=== PATIENT | female | born 1980 | race Caucasian/White ===

== ENCOUNTER → 2021-01-24 12:33 | Outpatient (CLI) | payer OTHER, SELFPAY ==
--- NOTE | ~2021-01-24 | MM_ITS ---
EXAMINATION: MM screening americo BI w alice HISTORY: Screening TECHNIQUE: Craniocaudal and mediolateral oblique 3-D tomosynthesis images were obtained and synthetic 2-D images were generated. CAD analysis was submitted and interpreted. COMPARISON: No prior mammogram is available for comparison at this institution. BREAST PARENCHYMAL COMPOSITION: Breast composed of scattered areas of fibroglandular density. FINDINGS: There is a new mass in the upper central aspect of the left breast with irregular margins. The right breast is stable without evidence for malignancy. IMPRESSION: 1. New left breast mass, upper central aspect. 2. Additional mammographic views and possible breast ultrasound are recommended. BI-RADS Category 0: Incomplete: Needs additional imaging evaluation. Reviewed, dictated and finalized at location A. IMPRESSION: 1. New left breast mass, upper central aspect. 2. Additional mammographic views and possible breast ultrasound are recommended . BI-RADS Category 0: Incomplete: Needs additional imaging evaluation.
== END ==
PROVIDERS: Visit Provider Obstetrics & Gynecology
DX: Z12.31 Encounter for screening mammogram for malignant neoplasm of breast (principal); R92.8 Other abnormal and inconclusive findings on diagnostic imaging of breast
CPT/HCPCS: 77063; 77067

== ENCOUNTER → 2021-02-28 08:22 | Outpatient (CLI) | payer OTHER, SELFPAY ==
--- NOTE | ~2021-02-28 | MMUS_ITS ---
EXAMINATION: MM diagnostic americo LT w alice, US breast LT limited HISTORY: New upper central left breast mass reported on 01/24/2021 screening mammogram examination TECHNIQUE: Additional 3-D tomosynthesis images of the left breast were performed and synthetic 2-D im ages were generated. CAD analysis was submitted and interpreted. High resolution targeted left breast ultrasound was performed. COMPARISON: 01/24/2021 and 06/12/2011 bilateral digital screening mammogram examinations FINDINGS: MAMMOGRAPHIC FINDINGS: Approximately 5 x 9 mm spiculated mass is noted at mid to posterior depth in the upper central left b reast, highly suspicious for malignancy. ULTRASOUND: At 11-12:00 8 cm from the nipple there is an antiparallel up to 6 x 5.3 mm irregular shadowing mass, highly suggestive of malignancy. Ultrasound-guided biopsy is recommended. IMPRESSION: 1. Irregular antiparallel shadowing up to 6 mm mass at 11-12:00 8 cm from nipple 2. Ultrasound-guided biopsy is recommended BI-RADS category 5, highly suggestive of malignancy. Dr. Jack telephoned the report and ultrasound-guided biopsy recommendation on 02/28/[address] Garcia Courseware Developer Sarah. Reviewed, dictated and finalized at location A. IMPRESSION: 1. Irregular antiparallel shadowing up to 6 mm mass at 11-12:00 8 cm from nippl e 2. Ultrasound-guided biopsy is recommended BI-RADS category 5, highly suggestive of malignancy. Dr. Jack telephoned the report and ultrasound-guided biopsy recommendation on at [address] Radha Lim.
== END ==
PROVIDERS: Visit Provider Obstetrics & Gynecology
DX: R92.8 Other abnormal and inconclusive findings on diagnostic imaging of breast (principal); N63.20 Unspecified lump in the left breast, unspecified quadrant
CPT/HCPCS: 76642; 77061; 77065; G0279

== ENCOUNTER 2022-06-10 13:22 | Emergency (ER) | payer OTHER, SELFPAY ==
[2022-06-10 13:32] VITALS: BP 125/87; PULSE 97; RESP 16; TEMP 37.1; O2SAT 99
--- NOTE | 2022-06-10 14:05 | ED.URI ---
HPI - URI/Sore Throat General Chief Complaint: Upper Respiratory Infection Stated Complaint: uri Time Seen by Provider: 06/10/22 14:05 Source: patient, RN notes reviewed and old records reviewed Mode of arrival: ambulatory Limitations: no limitations History of Present Illness HPI Narrative: 42-year-old female with a history of breast cancer presents to the [facility] with sinus congestion, low-grade fevers. Took Mucinex this morning. Symptoms for at least 3 or 4 days. Related Data Home Medications Medication Instructions Recorded Confirmed gabapentin 300 mg capsule 300 mg PO DAILY 06/10/22 06/10/22 tamoxifen 20 mg tablet 20 mg PO DAILY 06/10/22 06/10/22 Allergies Allergy/AdvReac Type Severity Reaction Status Date / Time No Known Allergies Allergy Verified 06/10/22 14:13 Review of Systems Review of Systems: All systems reviewed & are unremarkable except as noted in HPI and below Constitutional: Constitutional: Reports no additional constitutional complaints Eyes: Eyes: Reports no additional eye complaints ENT: Reports as per HPI, Reports nasal congestion and Reports sore throat Cardiovascular: Cardiovascular: Reports no additional cardiovascular complaints, Denies chest pain and Denies dyspnea Respiratory: Respiratory: Reports as per HPI, Reports no additional respiratory complaints, Denies chest congestion, Reports cough and Denies dyspnea Gastrointestinal: Gastrointestinal: Reports no additional gastrointestinal complaints, Denies abdominal pain, Denies nausea and Denies vomiting Musculoskeletal: Musculoskeletal: Reports no additional musculoskeletal complaints Integumentary/Breasts: Skin/Breast: Reports system reviewed and no additional complaints, except as docu Neurologic: Reports system reviewed and no additional complaints, except as documented Psychiatric: Psychiatric: Reports no additional psychiatric complaints Allergic/Immunologic: Allergic/Immunologic: Reports no additional allergic/immunologic complaints PMFSH Past Medical History Medical History (Updated 06/10/22 @ 20:37 by Renay Junior, RICHELLE) Breast cancer Comments At the time of my signature, I reviewed and agree with the nursing past medical, surgical, social, and family history. There is no relevant family history pertinent to the patient complaint. Exam Const: General: cooperative, healthy appearing, comfortable, no acute distress, well developed, alert and well nourished Nutritional Appearance: well nourished Orientation/consciousness: patient oriented x3 Limitations: no limitations HENMT: Head: normal to inspection Ears: hearing grossly normal bilaterally and external ears normal Face/Nose/Sinus: Normal external nose present, Normal nares present, Normal nasal mucous membranes and turbinates present and normal facial exam Face and sinus: normal facial exam Mouth: Yes Normal oral and palatal mucosa present, Yes lip normal and Yes moist mucous membranes Throat: posterior oropharynx normal and uvula midline Eyes: General: appearance normal, both eyes and all related structures Alignment and Position: alignment normal Periorbital: periorbital findings normal Conjunctivae: conjunctivae normal Pupils: Equal, round and reactive pupils present EOM: EOMs intact bilaterally Neck: Neck: normal visual inspection, full ROM, no lymphadenopathy and no meningeal signs Chest: Chest palpation & inspection: normal inspection of the chest Resp: Effort & Inspection: normal respiratory effort and able to speak in complete sentences Auscultation: clear to auscultation bilaterally, no crackles, no rales, no rhonchi and no wheezes Cardio: Rate: regular rate Rhythm: regular rhythm Back/Spine/Pelvis: Cervical Spine: cervical ROM normal Thoracic/Lumbar Spine: No thoracic spinal tenderness Skin: General skin exam: normal color and no rashes or lesions noted Lesions: no lesions Rashes: no rashes Wounds: no wounds Neuro: General: patien
== END 2022-06-10 14:45 | disposition home or self-care (01) ==
PROVIDERS: Emergency Provider Nurse Practitioner
DX: J06.9 Acute upper respiratory infection, unspecified (principal); J32.9 Chronic sinusitis, unspecified; Z20.822 Contact with and (suspected) exposure to COVID-19; Z85.3 Personal history of malignant neoplasm of breast
CPT/HCPCS: 87426; 87804; 99213; C9803; G0463

== ENCOUNTER 2022-09-19 14:43 | Emergency (ER) | payer OTHER, SELFPAY ==
[2022-09-19 14:52] VITALS: BP 125/86; PULSE 78; RESP 16; TEMP 36.8; O2SAT 99
--- NOTE | 2022-09-19 14:52 | ED.URI ---
HPI - URI/Sore Throat General Chief Complaint: Upper Respiratory Infection Stated Complaint: Sinus Time Seen by Provider: 09/19/22 14:52 Source: patient Mode of arrival: ambulatory Limitations: no limitations History of Present Illness HPI Narrative: 42-year-old male presents with complaint of postnasal drainage, nasal congestion, sore throat, headache, chills and body aches for 3 days. Denies cough. Denies nausea vomiting diarrhea. Is concerned for strep throat. 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 All systems reviewed and negative except as noted above. Related Data Home Medications Medication Instructions Recorded Confirmed tamoxifen 20 mg tablet 20 mg PO DAILY 06/10/22 09/04/22 cholecalciferol (vitamin D3) 09/19/22 Allergies Allergy/AdvReac Type Severity Reaction Status Date / Time No Known Allergies Allergy Verified 09/19/22 14:46 Review of Systems Review of Systems: CONSTITUTIONAL: Denies fever. Drink chills, or sweats. EYES: Denies visual changes, redness, or discharge. ENT: Reports rhinorrhea, congestion, sore throat. Denies otalgia. CARDIOVASCULAR: Denies chest pain, palpitations, or edema. RESPIRATORY: Denies cough or dyspnea. GASTROINTESTINAL: Denies abdominal pain, nausea, vomiting, or diarrhea. GENITOURINARY: Denies dysuria or hematuria. SKIN: Denies rash or itching. MUSCULOSKELETAL: Denies back pain, joint pain, or myalgia. NEUROLOGIC: reports headache. Denies numbness, or weakness. PSYCHIATRIC: Denies anxiety or depression. All other systems reviewed are negative, except as documented in HPI. [facility] Past Medical History Medical History (Updated 09/19/22 @ 15:17 by Malia Kerns NP) Breast cancer Surgical History Surgical History (Updated 09/04/22 @ 16:22 by ARVIND Sifuentes) H/O tubal ligation 2015 History of bilateral mastectomy (05/12/21) invasive ductal carcinoma / breast implants S/P endometrial ablation 2016 Social History Social History (Updated 09/04/22 @ 16:20 by ARVIND Sifuentes) Smoking status: Never smoker Alcohol intake: current Substance use: never Substance use type: does not use Living arrangements: with family Additional living arrangements comments: family Occupation/Education: 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 Gender identity (if verbalized by the patient): Female Sexual Orientation (if Verbalized by the Patient): Straight or Heterosexual Comments At time of signature, agree with nursing past medical, surgical, social and family history. There is no relevant family history pertinent to the presenting complaint. Exam Narrative: GENERAL: This is a well-nourished, well-developed patient, in no apparent distress. HEAD: normocephalic, atraumatic. EYES: PERRL. Sclera clear/white. Vision is grossly intact. EARS: External ears normal, auditory canals clear and without drainage, TMs normal without perforation. Hearing grossly intact. NOSE: External nose normal with no obvious nasal discharge, nares without redness, no rhinorrhea. THROAT: Mucous membranes moist, posterior pharynx clear. NECK: Neck supple, non-tender without lymphadenopathy, masses or thyromegaly. CARDIOVASCULAR: Regular rate and rhythm without murmurs, gallops, or rubs. RESPIRATORY: Clear to auscultation. Breath sounds equal bilaterally. No wheezes, rales, or rhonchi. SKIN: warm, Dry, intact with no suspicious lesions or rash, good texture and turgor. NEURO: awake, alert, and oriented to person, place and time. There were no obvious focal neurologic abnormalities. EXTREMITIES: No joint tenderness, effusion, or edema noted. Course Course Level of Care: Express Care Visit Vital Signs Vital signs: Vital Signs Temperature 36.8 C 09/19/22 14:52 Pulse Rate 78 09/19/22 14:52 Respiratory Rate 16 09/19/22 14:52 Blood Pressure 125/86 09/19/22 14:52 Pulse Oximetry 99 09/19/22 14:52 Oxygen Delivery
== END 2022-09-19 15:18 | disposition home or self-care (01) ==
PROVIDERS: Emergency Provider Nurse Practitioner Family
DX: J10.1 Influenza due to other identified influenza virus with other respiratory manifestations (principal); Z20.822 Contact with and (suspected) exposure to COVID-19; Z85.3 Personal history of malignant neoplasm of breast; Z90.13 Acquired absence of bilateral breasts and nipples
CPT/HCPCS: 87081; 87426; 87804; 87880; 99213; C9803; G0463

== ENCOUNTER 2023-03-13 09:39 | Emergency (ER) | payer OTHER, SELFPAY ==
[2023-03-13 10:05] VITALS: BP 110/77; PULSE 77; RESP 16; TEMP 36.9; O2SAT 100
--- NOTE | 2023-03-13 10:36 | ED.URI ---
HPI - URI/Sore Throat General Chief Complaint: Upper Respiratory Infection Stated Complaint: Sinus Source: patient and RN notes reviewed Mode of arrival: ambulatory Limitations: no limitations History of Present Illness HPI Narrative: 43-year-old female presents for complaint of sinus pressure congestion over the past 5 days. Endorses nonproductive cough for over week. Denies shortness of breath, vomiting, fevers or chills. Taking DayQuil and ibuprofen for symptoms. MD elicited complaint: cough Related Data Home Medications Medication Instructions Recorded Confirmed tamoxifen 20 mg tablet 20 mg PO DAILY 06/10/22 03/13/23 gabapentin 300 mg capsule 300 mg PO DIRECTED 03/13/23 03/13/23 Allergies Allergy/AdvReac Type Severity Reaction Status Date / Time No Known Allergies Allergy Verified 03/13/23 10:04 Review of Systems Review of Systems: CONSTITUTIONAL: Denies malaise, chills, sweats, fever EYES: Denies visual changes, redness, or discharge ENT: Reports rhinorrhea, congestion, sinus pain, denies otalgia, sore throat CARDIOVASCULAR: Denies chest pain, palpitations, edema RESPIRATORY: Reports cough, post nasal drainage. Denies dyspnea GASTROINTESTINAL: Denies abdominal pain, nausea, vomiting, diarrhea SKIN: Denies rash or itching MUSCULOSKELETAL: denies myalgia NEUROLOGIC: Reports headache PMFSH Past Medical History Medical History Breast cancer Surgical History Surgical History H/O tubal ligation 2014 History of bilateral mastectomy (05/12/21) invasive ductal carcinoma / breast implants S/P endometrial ablation 2016 Social History Social History Smoking status: Never smoker Alcohol intake: current Substance use: never Substance use type: does not use Living arrangements: with family Additional living arrangements comments: family Occupation/Education: 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 Gender identity (if verbalized by the patient): Female Sexual Orientation (if Verbalized by the Patient): Straight or Heterosexual Exam Narrative: GENERAL: mildly Ill-appearing, nontoxic no acute distress. HEAD: Normocephalic EYES: PERRLA, conjunctivae clear ENT: Mucous membranes moist. Left TM pearly solitario with dull light reflex, right TM pearly solitario with clear effusion; no tragal tenderness. Oropharynx erythematous without lesions or exudate, no drooling, no hoarseness, no trismus, uvula midline. No tripod positioning, muffled voice, soft palate or pharyngeal wall bulging NECK: Supple. No lymphadenopathy CHEST: Clear to auscultation, breath sounds equal. No wheezing, rhonchi, rales, or stridor. No respiratory distress, speaks in full sentences. HEART: Regular rate and rhythm. No murmur heard. SKIN: Warm, dry, no rash. NEURO: Alert and oriented x3. PSYCH: Normal mood and affect Course Course Emergency Course: Patient is aware of diagnosis, understands and agrees to treatment plan. Anticipatory guidance given. Patient agrees to follow-up as directed and is aware of reasons to seek care at the emergency department. Portions of this record may have been created with voice recognition software Level of Care: Express Care Visit Vital Signs Vital signs: Vital Signs Temperature 98.5 F 03/13/23 10:05 Pulse Rate 77 03/13/23 10:05 Respiratory Rate 16 03/13/23 10:05 Blood Pressure 110/77 03/13/23 10:05 Pulse Oximetry 100 03/13/23 10:05 Oxygen Delivery Room Air 03/13/23 10:05 Temperature 98.5 F 03/13/23 10:05 Pulse Rate 77 03/13/23 10:05 Respiratory Rate 16 03/13/23 10:05 Blood Pressure 110/77 03/13/23 10:05 Pulse Oximetry 100 03/13/23 10:05 Oxygen Delivery Room Air 03/13/23 10:05 reviewed MDM - URI/Sore Throat MDM Narrative
== END 2023-03-13 10:45 | disposition home or self-care (01) ==
PROVIDERS: Emergency Provider Nurse Practitioner Family
DX: J06.9 Acute upper respiratory infection, unspecified (principal); Z85.3 Personal history of malignant neoplasm of breast; Z90.13 Acquired absence of bilateral breasts and nipples
CPT/HCPCS: 99213; G0463

== ENCOUNTER 2024-06-10 11:48 | Emergency (ER) | payer OTHER, SELFPAY ==
[2024-06-10 12:06] VITALS: BP 140/86; PULSE 84; RESP 16; TEMP 36.6; O2SAT 99
[2024-06-10 12:34] LABS: EDSTREPNEGPOS1 Negative (Negative)
--- NOTE | 2024-06-10 12:59 | ED_ITS ---
HPI - URI/Sore Throat General Chief Complaint: Upper Respiratory Infection Stated Complaint: sore throat, congestion Time Seen by Provider: 06/10/24 12:15 Source: patient Mode of arrival: ambulatory Limitations: no limitations History of Present Illness HPI Narrative: 44-year-old female presents with complaint of sore throat for the past 2-3 days. Reports that she has had nasal congestion, sinus pressure and congestion for the past 2-3 weeks. Feeling worse with body aches and chills. 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 Concerned she may have strep throat. Afebrile. All systems reviewed and negative except as noted above. Related Data Home Medications ?Medication ?Instructions ?Recorded ?Confirmed ?Last Taken ?Type tamoxifen 20 mg tablet 20 mg PO DAILY 06/10/22 09/10/23 Unknown History gabapentin 300 mg capsule 300 mg PO DIRECTED 03/13/23 09/10/23 Unknown History cholecalciferol (vitamin D3) 50 50 mcg PO DAILY 09/10/23 09/10/23 Unknown History mcg (2,000 unit) capsule Allergies Allergy/AdvReac Type Severity Reaction Status Date / Time No Known Allergies Allergy Verified 06/10/24 12:11 Review of Systems Review of Systems: CONSTITUTIONAL: Denies fever, chills, or sweats. reports fatigue. EYES: Denies visual changes, redness, or discharge. ENT: Reports rhinorrhea, congestion, sore throat, sinus pressure. Denies otalgia. CARDIOVASCULAR: Denies chest pain, palpitations, or edema. RESPIRATORY: Denies cough or dyspnea. GASTROINTESTINAL: Denies abdominal pain, nausea, vomiting, or diarrhea. GENITOURINARY: Denies dysuria or hematuria. SKIN: Denies rash or itching. MUSCULOSKELETAL: Denies back pain, joint pain, or myalgia. NEUROLOGIC: Denies headache, numbness, or weakness. PSYCHIATRIC: Denies anxiety or depression. All other systems reviewed are negative, except as documented in HPI. [facility] Past Medical History Medical History Breast cancer Surgical History Surgical History H/O tubal ligation 2014 History of bilateral mastectomy (05/12/21) invasive ductal carcinoma / breast implants S/P endometrial ablation 2016 Social History Social History (Updated 09/10/23 @ 16:30 by Carina Yoon, [facility]) Smoking status: Never smoker Second hand tobacco smoke exposure: No Alcohol intake: current Drinks per week: 4 Substance use: never Substance use type: does not use Do You Feel Safe in your Home?: Yes Lack of Transportation: No Lack of Food: Never True Current Housing: I Have Housing Concerned About Future Housing: No Difficulty Paying Gas/Electric Bills: No Difficulty Paying for Meds: No Currently Unemployed: No Education: Master's Degree or Higher Difficulty w/ Childcare or Family Care: No Living arrangements: with family Additional living arrangements comments: Occupation/Education: 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 Gender identity (if verbalized by the patient): Female Sexual Orientation (if Verbalized by the Patient): Straight or Heterosexual Comments At time of signature, agree with nursing past medical, surgical, social and family history. There is no relevant family history pertinent to the presenting complaint. Exam Narrative: GENERAL: This is a well-nourished, well-developed patient, in no apparent distress. HEAD: normocephalic, atraumatic. EYES: PERRL. Sclera clear/white. Vision is grossly intact. EARS: External ears normal, auditory canals clear and without drainage, TMs normal without perforation. Hearing grossly intact. NOSE: External nose normal with Mild congestion, purulent nasal drainage, erythema and swelling to bilateral nares. Maxillary sinus tenderness on palpation. THROAT: Mucous membranes moist, Erythema postnasal drainage NECK: Neck supple, non-tender without lymphadenopathy, masses or thyromegaly. CARDIOVASCULAR: Regular rate and rhythm without murmurs, gallops, or rubs. RESPIRATORY: Clear to auscultation. Breath sounds equal bilaterally. No wheezes, rales, or rhonchi. SKIN: warm, Dry, intact with no suspicious lesions or rash, good texture and turgor. NEURO: awake, alert, and oriented to person, place and time. There were no obvious focal neurologic abnormalities. EXTREMITIES: No joint tenderness, effusion, or edema noted. Course Course Level of Care: Express Care Visit Vital Signs Vital signs: Vital Signs Temperature 36.6 C 06/10/24 12:06 Pulse Rate 84 06/10/24 12:06 Respiratory Rate 16 06/10/24 12:06 Blood Pressure 140/86 06/10/24 12:06 Pulse Oximetry 99 06/10/24 12:06 Oxygen Delivery Room Air 06/10/24 12:06 Temperature 36.6 C 06/10/24 12:06 Pulse Rate 84 06/10/24 12:06 Respiratory Rate 16 06/10/24 12:06 Blood Pressure 140/86 06/10/24 12:06 Pulse Oximetry 99 06/10/24 12:06 Oxygen Delivery Room Air 06/10/24 12:06 reviewed MDM - URI/Sore Throat MDM Narrative Medical decision making narrative: strep test negative. Strep culture ordered. Will treat patient with antibiotic for bacterial sinusitis due to duration of symptoms and exam findings. Patient agrees with plan of care. Patient is aware of diagnosis, understands and agrees to treatment plan. Anticipatory guidance given. Patient agrees to follow-up as directed and is aware of reasons to seek care at the emergency department. Portions of this record may have been created with voice recognition software Differential Diagnosis Differential diagnosis: Likely upper respiratory infection, sinusitis and viral infection Lab Data Labs: Lab Results 06/10/24 Range/Units 12:18 POC Grp A Strep Screen Negative (Negative) Discharge Plan Discharge Clinical Impression: Acute bacterial sinusitis Patient Disposition: Home, Self-Care Condition: Stable Instructions: Antibiotic Form, Sinusitis (ED) Additional Instructions: take medications as prescribed. Taking [id number] antihistamine daily such as Claritin or Zyrtec. Take Tylenol or ibuprofen every 6-8 hours as needed for pain and fever. Drink at least 64 oz of water a day. Follow-up primary care physician if symptoms are not improving. Patient Language: [place] Prescriptions: New amoxicillin 875 mg tablet 875 mg PO Q12H 7 Days Qty: 14 0RF fluticasone propionate [Children's Flonase Allergy Rlf] 50 mcg/actuation spray,suspension 1 spray intranasal BID Qty: 16 0RF Rx Instructions: administer into each nostril No Action gabapentin 300 mg capsule 300 mg PO DIRECTED tamoxifen 20 mg tablet 20 mg PO DAILY cholecalciferol (vitamin D3) 50 mcg (2,000 unit) capsule 50 mcg PO DAILY Follow-up/Referrals: PHYSICIAN,SPORTS MARKETER [Primary Care Provider] - Stand Alone Forms: Work/School Release IP Time of Disposition: 12:32
== END 2024-06-10 12:39 | disposition home or self-care (01) ==
PROVIDERS: Emergency Provider Nurse Practitioner Family
DX: J01.90 Acute sinusitis, unspecified (principal); Z85.3 Personal history of malignant neoplasm of breast; Z90.13 Acquired absence of bilateral breasts and nipples
CPT/HCPCS: 87081; 87880; 99213; G0463

== ENCOUNTER 2024-12-23 19:37 | Emergency (ER) | payer OTHER, SELFPAY ==
[2024-12-23 19:38] VITALS: BP 129/93; PULSE 108; RESP 20; TEMP 36.7; O2SAT 100
--- OUTSIDE RECORDS SUMMARY | 2024-12-23 19:38 | XMS_ITS | Clinical Summary ---
Author Organization [facility] Address [address] [place] [address] Phone Care Team Providers Care Library Media Specialist Name Role Phone Unavailable Primary Care Provider Unavailabl e Allergies No known active allergies Medications No known medications Active Problems Problem Noted Date Diagnosed Date Csx 12/03, b-smyth, EBL 1200, H/H 0800 12/02/2011 GBS (group B Streptococcus c arrier), +RV culture, currently 11/05/2011 Choroid plexus cysts, , affecting care of mother, antepartum 07/12/2011 Resolved Problems Problem Noted Date Diagnosed Date Resolved Date R/O rupture 11/25/2011 12/04/2011 Immunizations Immunization Administration Dates Next Due (ADACEL/BOOSTRIX)(10 YR UP) TDAP VACCINE, 0.5ML, IM 12/08/2011 Family History Medical History Relation Name Comments Healthy Father Cancer Maternal Grandmother breast ca Healthy Mother High Cholesterol Paternal Grandmother Ovarian Cancer Neg Hx Relation Name Status Comments Brother Alive Father Alive Maternal Grandfather Maternal Grandmother Mother Alive Paternal Grandfather Paternal Grandmother Alive Social History Tobacco Use Types Packs/Day Years Used Date Smoking Tobacco: Never Smokeless Tobacco: Never Alcohol Use Standard Drinks/Week Comments No 0 (1 standard drink = 0.6 oz pur e alcohol) Comments No Sex and Gender Information Value Date Recorded Sex Assigned at Not on file 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 Gender Identity Not on file Sexual Orientation Not on file Occupation Industry Job Start Date Job End Date Not on file Not on file Not on file Not on file Last Filed Vital Signs Vital Sign Reading Time Taken Comments Blood Pressure 118/64 01/21/2014 9:38 AM CDT Pulse 78 12/08/2011 7:45 AM CDT Temperature 36.7 C (98 F) 12/08/2011 7:45 AM CDT Respiratory Rate 18 12/08/2011 7:45 AM CDT Oxygen Saturation 96% 12/04/2011 6:22 AM CDT Inhaled Oxygen Concentration - - Weight 63 kg (139 lb) 01/21/2014 9:38 AM CDT Height 160 cm (5' 3) 01/21/2014 9:38 AM CDT Body Mass Index 24.62 01/21/2014 9:38 AM CDT Plan of Treatment Health Maintenance Due Date Last Done Comments HEPATITIS B VACCINES (1 of 3 - 19+ 3-dose series) 01/12/1999 CERVICAL CANCER SCREENING 04/22/2013 PAP SMEAR 04/22/2013 04/22/2012, 06/24/2010 HPV/Cotest (21-29) 04/22/2017 04/22/2012 HPV/Cotest (30-65) 04/22/2017 04/22/2012 BREAST CANCER SCREENING 2020 DTAP/TDAP/TD VACCINES (2 - Td or Tdap) 12/07/2021 12/08/2011 INFLUENZA VACCINE (#1) 2024 HPV VACCINES Aged Out No longer eligi ble based on patient's age to complete this topic Procedures Procedure Name Priority Date/Time Associated Diagnosis Comments CERV/VAG CYTOPATH, THIN PREP CONSUMER SERVICES CONSULTANT AND HPV Routine 04/22/2012 12:12 PM CDT Screening for malignant neoplasm of the cervix Routine gynecological examination from Last 3 Months or Most Recently Relevant to Health Maintenance Results * CERV/VAG CYTOPATH, THIN PREP CONSUMER SERVICES CONSULTANT AND HPV (04/22/2012 12:12 PM CDT) PAP INTERP Negative for intraepithelial lesion or malignancy. [employer] [facility] Process Technician Pap Comment This Pap test has been evaluated with computer assisted technology. [employer] [facility] ADEQUACY: Satisfactory for evaluation. Endocervical/maya sformation zone component present. Age and/or menstrual status not provided [facility] [employer] [facility] CLINICAL INFORMATION Information not provided [facility] [employer] [facility] SOURCE [employer] [facility]ORAT[facility] PREV PAP: WNL [facility] [employer] [facility] SECURITY SME: [place], [place](ASCP[place] [facility] LABORATORY SERVICES [facility] LAST MENSTRUAL PERIOD INFORMATION NOT PROVIDED [facility] LABORATORY [facility] PREV BX: INFORMATION NOT PROVIDED [facility] LABORATORY [facility] HPV HIGH RISK DNA DETECTION NOT DETECTED NOT DETECTED [facility] LABORATORY [facility] Comment: Tested for high risk types 16,18,31,33,35,39,45,51,52, 56,58,59,68. The analytical performance characteristics of this assay, when used to test SurePath or vaginal specimens, have been determined by [employer]. Methodology: Hybrid Capture with Signal Amplification. Lab test performed by: [facility] [address] [place] [address] MELISSA CORADO DO P Endocervical 04/22/2012 12:1 2 PM CDT 04/22/2012 12:45 PM CDT Comment:ENDOCERVICAL us Corinna Jin MD PATHOLOGY/CYTOLOGY ORDERABLE S Edited [facility] LABORATORY [facility] CLIA# [id number] [address] [place] [address] from Last 3 Months or Most Recently Relevant to Health Maintenance Insurance [facility] [id number] [place] [address] Advance Directives For more information, please contact: [phone] * Full Code (Latest Code Status on File) Date Activated Date Inactivated Comments 12/02/2011 9:47 PM 12/08/2011 2:02 PM
--- OUTSIDE RECORDS SUMMARY | 2024-12-23 19:39 | XMS_ITS ---
Author Organization [facility] Address [address] [place] [address] Care Team Providers Care Central Supply Manager Name Role Phone Toribio Garcia MD Unavailable [phone] Toribio Garcia MD Primary Care Provider [phone] Active Problems Problem Noted Date Diagnosed Date History of breast cancer 10/02/2021 Overview (10/02/2021): Added automatically from request for surgery [id number] Malignant neoplasm of overla pping sites of left female breast 07/03/2021 Dysuria 04/10/2021 Threatened miscarriage 04/10/2021 Abnormal mammography 03/12/2021 state, incidental 12/02/2011 GBS (group B Streptococcus c arrier), +RV culture, currently 11/05/2011 Choroid plexus cysts, , affecting care of mother, antepartum 07/12/2011 Current Treatment and Therapy Plans No current plan information found. Past Treatment and Therapy Plans No past plan information found. Lifetime Dose Tracking * Chemical Lifetime Dose Automatic Entry Manual Entr y DLP 1,564 mGycm 1,564 mGycm 0 mGycm
--- OUTSIDE RECORDS SUMMARY | 2024-12-23 19:39 | XMS_ITS | Clinical Summary ---
Author Organization [facility] Address [address] [place] [address] Care Team Providers Care Stringed Instrument Repairer Name Role Phone Unavailable Primary Care Provider Unavailabl e Source Comments [facility] [employer],non-owned Affiliates and Associated Physician Practices is amultiple site organization consisting of ambulatory clinics and hospital sitesin [place], [place], [place] and [place]. This disclosure is being madepursuant to the Care Everywhere program and may not contain all information available regarding this patient. Last updated 18.[facility] [employer] Allergies No known active allergies Medications * Be aware that medications may not be up to date on this document. Alwaysverify current medications with the patient. No known medications Active Problems No known active problems Immunizations Immunization Administration Dates Next Due INFLUENZA VACCINE, QUADR. (F LUZONE; FLULAVAL; FLUARIX; AFLURIA QUADRIVALENT; 6MO+), 0.5 ML (IIV4) 03/31/2015 TDAP (7yrs+) 03/29/2015,12/08/2011 Social History Tobacco Use Types Packs/Day Years Used Date Smoking Tobacco: Never Smokeless Tobacco: Never Comments Unknown Sex and Gender Information Value Date Recorded Sex Assigned at Not on file Legal Sex Female 9:10 AM CDT Gender Identity Not on file Sexual Orientation Not on file Last Filed Vital Signs Vital Sign Reading Time Taken Comments Blood Pressure 118/78 01/23/2021 10:03 AM CDT Pulse 75 01/23/2021 10:03 AM CDT Temperature 36.7 C (98.1 F) 01/23/2021 10:03 AM CDT Respiratory Rate 17 01/23/2021 10:03 AM CDT Oxygen Saturation 100% 01/23/2021 10:03 AM CDT Inhaled Oxygen Concentration - - Weight 65.8 kg (145 lb) 01/23/2021 10:03 AM CDT Height 160 cm (5' 3) 01/23/2021 10:03 AM CDT Body Mass Index 25.69 01/23/2021 10:03 AM CDT Plan of Treatment Health Maintenance Due Date Last Done Comments LIPID TESTING 1980 MAMMOGRAM 1980 HIV SCREENING 01/12/1995 HEPATITIS C SCREENING 01/08/1998 HEPATITIS B VACCINE (1 of 3 - 19+ 3-dose series) 01/12/1999 SCREENING FOR DIABETES 01/23/2021 COVID-19 VACCINE ( - 2023-2 5 season) 2024 DEPRESSION SCREENING 06/24/2024 INFLUENZA VACCINE (Season Ended) 2025 03/31/2015 DTAP/TDAP/TD VACCINES (3 - T d or Tdap) 03/29/2025 03/29/2015, 12/08/2011 ZOSTER VACCINE (1 of 2) 01/12/2030 HIB VACCINE Aged Out No longer eligi ble based on patient's age to complete this topic HPV VACCINE Aged Out No longer eligi ble based on patient's age to complete this topic MENINGOCOCCAL (Group B) VACCINE SHARED DECISION-MAKING Aged Out No longer eligible based on patient's age to complete this topic MENINGOCOCCAL GROUPS A/C/Y/W VACCINE Aged Out No longer eligible b ased on patient's age to complete this topic PNEUMOCOCCAL VACCINE Aged Out No long er eligible based on patient's age to complete this topic
--- OUTSIDE RECORDS SUMMARY | 2024-12-23 19:39 | XMS_ITS | Encounter Summary ---
Author Organization [facility] Address [address] [place] [address] Care Team Providers Care Laboratory Equipment Installer Name Role Phone Toribio Garcia MD Unavailable [phone] Toribio Garcia MD Primary Care Provider [phone] Encounter Details Date Type Department Care Team (Late st Contact Info) Description 12/23/2024 Telephone [facility] at [address] [address] April Akers NP [address] [place] [address] [address] [place] [address] Social History Tobacco Use Types Packs/Day Years Used Date Smoking Tobacco: Never Smokeless Tobacco: Never AUDIT-C Answer Date Recorded Q1: How often do you have a drink containing alc ohol? 2-3 times a week 10/16/2021 Q2: How many drinks containi ng alcohol do you have on a typical day when you are drinking? 3 or 4 10/16/2021 Frequency of Binge Drinking Not on file 09/23 Comments No Sex and Gender Information Value Date Recorded Sex Assigned at Not on file Legal Sex Female 9:46 AM CDT Gender Identity Not on file Sexual Orientation Not on file documented as of this encounter Miscellaneous Notes * Telephone Encounter - Rosi Leos NP - 12/23/2024 6:50 PM CDT Patient calling to the clinic to report that she is now having kidney pain and fevers for the past 2 days. Patient's urinary culture is positive for Urinary tract infection and shows susceptibility to the antibiotic she is on. Discussed with patient concern for pyelonephritis/kidney infection and would recommend ER for further evaluation. Patient verbalized understanding * Telephone Encounter - Keila Orta - 12/23/2024 6:45 PM CDT Patient is calling back after her visit with us on Saturday. She has medical questions. Patient wouldlike a call back. documented in this encounter Plan of Treatment Not on file documented as of this encounter Visit Diagnoses Not on filedocumented in this encounter Care Teams Laboratory Equipment Installer Relationship Specialty Start Date End Date Toribio Garcia MD [address] [place] [address] PCP - General 03/10/21 Toribio Garcia MD [address] [place] [address] Referring Physician Obstetrics and Gynecology 03/01/21 documented as of this encounter
--- OUTSIDE RECORDS SUMMARY | 2024-12-23 19:39 | XMS_ITS | Referral Summary ---
Author Organization [facility] Address [address] [place] [address] Care Team Providers Care Home School Coordinator Name Role Phone Toribio Garcia MD Unavailable [phone] Toribio Garcia MD Primary Care Provider [phone] Encounters Date Type Department Care Team Description 12/23/2024 Telephone [facility] at [address] [phone] April Akers NP 12/21/2024 2:27 PM CDT - 12/21/2024 11:59 PM CDT Hospital Encounter [address] [address] Acute cystitis with hematuria Discharge Disposition: Discharge to home or self care 12/21/2024 2:15 PM CDT Office Visit [facility] at [address] [phone] April Akers NP Acute cystitis with hematuria (Primary Dx) 12/11/2024 Results Follow-Up [facility] at [address] [phone] Olga Apple NP Urine culture Urine, clean voided 12/08/2024 3:07 PM CDT - 12/08/2024 11:59 PM CDT Hospital Encounter [address] [address] Acute cystitis with hematuria Discharge Disposition: Discharge to home or self care 12/08/2024 3:00 PM CDT Office Visit [facility] at [address] [phone] Rosi Leos NP Acute cystitis with hematuria (Primary Dx) 10/28/2024 11:45 AM CDT Office Visit [facility] [address] [place] [phone] Lottie Donohue MD Invasive ductal carcinoma of breast, female, left (HCC) (Primary Dx) 10/28/2024 11:15 AM CDT Lab [facility] [address] [place] [address] Invasive ductal carcinoma of breast, female, left (HCC) 10/28/2024 9:12 AM CDT - 10/28/2024 11:59 PM CDT Hospital Encounter [facility] at [facility] [address] [place] [address] Invasive ductal carcinoma of breast, female, left (HCC) Discharge Disposition: Discharge to home or self care 10/12/2024 Telephone [facility] [address] [facility] Floor [address] [place] [address] Tonya Ferraro RMA from Last 3 Months Allergies No known active allergies Medications multivitamin capsule Take 1 capsule by mouth every morning Drive Active ibuprofen (ADVIL,MOTRIN) 200 mg tab/cap Take 2 tablet/capsu le (400 mg total) by mouth every 6 (six) hours as needed for pain Active cholecalciferol , vitamin D3, (VITAMIN D3 ORAL) Take 2,000 Units by mouth daily Active UNABLE TO FIND Take by mouth every morning Med Name: Thrive Shake with vitamins Active tamoxifen (NOLVADEX) 20 mg tabletIndicatio ns:Invasive ductal carcinoma of breast, female, left (HCC) Take 1 tablet (20 mg total) by mouth daily 90 tablet 3 5 Active gabapentin (NEURONTIN) 300 mg capsule TAKE 1 CAPSULE NIGHTLY 90 capsule 3 5 Active cephalexin (KEFLEX) 500 mg capsuleIndicati ons:Acute cystitis with hematuria Take 1 capsule (500 mg total) by mouth 2 (two) times a day for 5 days 10 capsule 5 12/27/19 25 Active nitrofurantoin monohydrate (MACROBID) 100 mg capsuleIndicati ons:Acute cystitis with hematuria Take 1 capsule (100 mg total) by mouth 2 (two) times a day for 5 days 10 capsule 5 12/14/19 25 cephalexin (KEFLEX) 500 mg capsule Take 1 capsule (500 mg total) by mouth 2 (two) times a day for 5 days 10 capsule 5 12/22/19 25 Discontinue d(Therapy completed) Active Problems Problem Noted Date Diagnosed Date History of breast cancer 10/02/2021 Overview (10/02/2021): Added automatically from request for surgery [id number] Malignant neoplasm of overla pping sites of left female breast 07/03/2021 Dysuria 04/10/2021 Threatened miscarriage 04/10/2021 Abnormal mammography 03/12/2021 state, incidental 12/02/2011 GBS (group B Streptococcus c arrier), +RV culture, currently 11/05/2011 Choroid plexus cysts, , affecting care of mother, antepartum 07/12/2011 Immunizations Immunization Administration Dates Next Due Influenza, Quadrivalent, Spl it, Preservative Free, Intramuscular 03/31/2015 Moderna SARS-CoV-2 Monovalent Vaccination (12+ Y RS) 03/31/2021 Tdap 03/29/2015,12/08/2011 Social History Tobacco Use Types Packs/Day Years Used Date Smoking Tobacco: Never Smokeless Tobacco: Never Tobacco Cessation:Counseling Given: Not Answered AUDIT-C Answer Date Recorded Q1: How often [...] Sign Reading Time Taken Comments Blood Pressure 118/76 12/21/2024 2:20 PM CDT Pulse 101 12/21/2024 2:20 PM CDT Temperature 36.8 C (98.3 F) 12/21/2024 2:20 PM CDT Respiratory Rate 20 12/21/2024 2:20 PM CDT Oxygen Saturation 99% 12/21/2024 2:20 PM CDT Inhaled Oxygen Concentration - - Weight 73.5 kg (162 lb) 12/21/2024 2:20 PM CDT Height 160 cm (5' 2.99) 10/28/2024 12:10 PM CDT Body Mass Index 28.7 10/28/2024 12:10 PM CDT Plan of Treatment Not on file Medical Devices Implanted Type Area Publishing Systems Analyst Device Identifier Shelf Expiration Date Model / Serial / Lot [employer] Natrelle Inspira Smooth Gel Xfull Profile Implant 495cc Breast Ssx-495 - [id number] - [id number] Implanted:Qty : 1 on 10/16/2021 by Francesco Fleming MD at [facility] Breast Left: Breast [employer] [id number] 05/10/2023 SSX-495 / [id number] / [employer] Ssx-495 Natrelle Inspira Smooth Gel Xfull Profile Implant 495cc Breast - [id number] - [id number] Implanted:Qty : 1 on 10/16/2021 by Francesco Fleming MD at [facility] Breast Right: Breast [employer] [id number] 11/05/2023 SSX-495 / [id number] / Matrix Tissue 16x6cm Alloderm Select Thk.4-2.4mm Thick - [id number] Implanted:Qty : 1 on 05/12/2021 by Francesco Fleming MD at [facility] Right: Breast [employer] 03/23/2022 [id number] / / [id number] Matrix Tissue 16x6cm Alloderm Select Thk.4-2.4mm Thick - [id number] Implanted:Qty : 1 on 05/12/2021 by Francesco Fleming MD at [facility] Left: Breast [employer] 04/23/2022 [id number] / / [id number] [employer] [id number] Magtrace Liquid Marker 10 Vial Carton - [id number] Implanted:Qty : 1 on 05/12/2021 by Maricruz Howard MD PhD at [facility] Left: Breast [employer] 11/21/2022 [id number] / / [id number] Explanted Type Area Publishing Systems Analyst Device Identifier Shelf Expiration Date Model / Serial / Lot [employer] [id number]-[id number]-89-[id number] Implant Mammary Natrelle Te Smooth 254v-Au-65-T With Fourte - [id number] - [id number] Implanted:Qty : 1 on 05/12/2021 by Francesco Fleming MD at [facility] Explanted:Qty : 1 on 10/16/2021 by Francesco Fleming MD at [facility] Right: Breast [employer] [id number] 03/26/2025 133S-MX-1 3-T / [id number] / [employer] 887u-[id number]-57-[id number] Implant Mammary Natrelle Te Smooth [id number]-[id number]-09-[id number] With Fourte - [id number] - [id number] Implanted:Qty : 1 on 05/12/2021 by Francesco Fleming MD at [facility] Explanted:Qty : 1 on 10/16/2021 by Francesco Fleming MD at [facility] Left: Breast [employer] [id number] 02/27/2025 133S-MX-1 3-T / [id number] / Procedures Procedure Name Priority Date/Time Associated Diagnosis Comments POCT URINALYSIS DIPSTICK Routine 12/21/2024 2:28 PM CDT Acute cystitis with hematuria URINE CULTURE Routine 12/21/2024 2:27 PM CDT Acute cystitis with hematuria URINE CULTURE Routine 12/08/2024 3:07 PM CDT Acute cystitis with hematuria POCT URINALYSIS DIPSTICK Routine 12/08/2024 3:06 PM CDT Acute cystitis with hematuria EGFR STAT 10/28/2024 11:25 AM CDT Invasive ductal carcinoma of breast, female, left (HCC) DIFFERENTIAL AUTO STAT 10/28/2024 11: 25 AM CDT Invasive ductal carcinoma of breast, female, left (HCC) CBC WITH AUTO DIFFERENTIAL STAT 10/28/2024 11:25 AM CDT Invasive ductal carcinoma of breast, female, left (HCC) COMPREHENSIVE METABOLIC PANEL STAT 10/28/2024 11:25 AM CDT Invasive ductal carcinoma of breast, female, left (HCC) VITAMIN D 25 HYDROXY STAT 10/28/2024 11:25 AM CDT Invasive ductal carcinoma of breast, female, left (HCC) CT CHEST WO CONTRAST Schedule MARC, Read MARC (Appt Today, Awaiting Results) 10/28/2024 9:21 AM CDT Invasive ductal carcinoma of breast, female, left (HCC) from Last 3 Months Results * (ABNORMAL) POCT urinalysis dipstick (12/21/2024 2:28 PM CDT) Color, Urine, POC Dark Yellow Clarity, ur, POC Cloudy(A) Clear Glucose, ur, POC Negative Negative Bilirubin, ur, POC Negative Negative Ketones, ur, POC Negative Negative Specific [place], POC 1.005 1.003 - 1.030 Blood, ur, POC Moderate(A) Negative pH, ur, POC 6.0 5.0 - 8.0 Protein, ur, POC 30.(A) Negative Urobilinogen, urine, POC 0.2 0.2 - 1.0 mg/dL Nitrite, ur, POC Negative Negative Leukocytes, ur, POC Large(A) Negative Lot Number [id number] Urine 12/21/2024 2:28 PM CDT us April Akers NP POINT OF CARE TEST ORDERABLES F inal Result * (ABNORMAL) Urine culture Urine, clean voided (12/08/2024 3:07 PM CDT) Report Final Report: Greater than or equal to 100,000 colonies/mL of Escherichia coli (.) Comment:Testing performed by : [facility], [address] [place]., [address] Organism ESCHERICHIA COLI [facility] Urine, clean voided 12/08/2024 3:07 PM CDT 12/09/2024 12:12 AM CDT Narrative KINGSLEY - 12/11/2024 6:12 AM CDT Testing performed by [facility] ([phone]) Organism Antibiotic Method Susceptibility Escherichia coli Ampicillin INTERPRETATION Resistant Escherichia coli Cefazolin INTERPRETATION Susceptible Escherichia coli Nitrofurantoin INTERPRETATION Susceptible Escherichia coli Gentamicin INTERPRETATION Susceptible Escherichia coli Trimethoprim with Sulfamethoxazole IN TERPRETATION Resistant Escherichia coli Meropenem INTERPRETATION Susceptible Escherichia coli Cefepime INTERPRETATION Susceptible Escherichia coli Ciprofloxacin INTERPRETATION Susceptible Escherichia coli Ceftazidime INTERPRETATION Susceptible Escherichia coli Ceftriaxone INTERPRETATION Susceptible Escherichia coli Piperacillin/Tazobactam INTERPRETATIO N Susceptible Escherichia coli Cephalexin INTERPRETATION Susceptible Escherichia coli Cefuroxime-axetil INTERPRETATION Susceptible Escherichia coli Cefdinir INTERPRETATION Susceptible us Rosi Leos NP LAB MICROBIOLOGY - GENERAL ORD ERABLES Final Result [facility] [address] [address] Department [place] [address] * (ABNORMAL) POCT urinalysis dipstick (12/08/2024 3:06 PM CDT) Color, Urine, POC Yellow Clarity, ur, POC Cloudy(A) Clear Glucose, ur, POC Negative Negative Bilirubin, ur, POC Negative Negative Ketones, ur, POC Negative Negative Specific [place], POC 1.010 1.003 - 1.030 Blood, ur, POC Large(A) Negative pH, ur, POC 6.0 5.0 - 8.0 Protein, ur, POC 30.(A) Negative Urobilinogen, urine, POC 0.2 0.2 - 1.0 mg/dL Nitrite, ur, POC Negative Negative Leukocytes, ur, POC Moderate(A) Negative Lot Number [id number] Urine 12/08/2024 3:06 PM CDT Rosi Leos NP POINT OF CARE TEST ORDERABLES Final Result * eGFR (10/28/2024 11:25 AM CDT) eGFR >90 >=60 mL/min/1. 73 m2 Comment: Interpretive Data Reference Interval Normal >/= 90 mL/min/1.73m2 Mildly decreased* 60 - 89 mL/min/1.73m2 Mildly to moderately decreased 45 - 59 mL/min/1.73m2 Moderately to severely decreased 30 - 44 mL/min/1.73m2 Severely decreased 15 - 29 mL/min/1.73m2 Kidney Failure < 15 mL/min/1.73m2 *Relative to young adult level Estimated glomerular filtration rate is determined by the 2020 CKD-EPI equation recommended by the National Kidney Foundation (A Unifying Approach to GFR Estimation: Recommendations of the NKF-ASK Task Force on Reassessing the Inclusion of Race in Diagnosing Kidney Disease, JASN 2020). The CKD-EPI equation should not be used for patients with unstable renal function and has not been validated in children and those over 70. Current interpretive data was last reviewed 2021. Blood 10/28/2024 11:2 5 AM CDT 10/28/2024 11:25 AM CDT us Lottie Donohue MD LAB BLOOD ORDERABLES Final Resul t [facility] ARANDA [facility] Department of Laboratories [place], [place] [id number] * Differential, auto (10/28/2024 11:25 AM CDT) Neutrophil abs 5.46 1.50 - 6.50 K/cumm Comment:Testing performed by : [facility], [address] [facility] [address] Imm gran abs 0.10 0.00 - 0.10 K/cumm [facility] Lymphocyte abs 1.86 0.80 - 3.30 K/cumm [facility] Monocyte abs 0.77 0.20 - 0.80 K/cumm [facility] Eosinophil abs 0.13 0.00 - 0.50 K/cumm [facility] Basophil abs 0.06 0.00 - 0.10 K/cumm [facility] Neutrophil pct 65.1 % [facility] Comment: Interpretive Data Percent cell count reference ranges are not reported, since discordance with absolute values may lead to misinterpretation of CBC data. Current Interpretive Data was last revised on 2017. Imm gran pct 1.2 % [facility] Comment: Interpretive Data Percent cell count reference ranges are not reported, since discordance with absolute values may lead to misinterpretation of CBC data. Current Interpretive Data was last revised on 2017. Lymphocyte pct 22.2 % [facility] Comment: Interpretive Data Percent cell count reference ranges are not reported, since discordance with absolute values may lead to misinterpretation of CBC data. Current Interpretive Data was last revised on 2017. Monocyte pct 9.2 % [facility] Comment: Interpretive Data Percent cell count reference ranges are not reported, since discordance with absolute values may lead to misinterpretation of CBC data. Current Interpretive Data was last revised on 2017. Eosinophil pct 1.6 % [facility] Comment: Interpretive Data Percent cell count reference ranges are not reported, since discordance with absolute values may lead to misinterpretation of CBC data. Current Interpretive Data was last revised on 2017. Basophil pct 0.7 % [facility] Comment: Interpretive Data Percent cell count reference ranges are not reported, since discordance with absolute values may lead to misinterpretation of CBC data. Current Interpretive Data was last revised on 2017. Blood 10/28/2024 11:2 5 AM CDT 10/28/2024 11:25 AM CDT Lottie Donohue MD LAB BLOOD ORDERABLES Final Resul t [facility] [place] [address] * (ABNORMAL) CBC with auto differential (10/28/2024 11:25 AM CDT) [facility] Signature WBC 8.38 3.80 - 9.90 K/cumm Comment:Testing performed by : [address] [address] Hgb 13.0 11.9 - 15.5 g/dL [facility] Comment:Testing performed by : [place] [id number] Hct 37.8 35.6 - 45.5 % [facility] Comment:Testing performed by : [address] [address] Plt 230 150 - 400 K/cumm [facility] Comment:Testing performed by : [address] [address] MPV 8.5(L) 9.1 - 12.3 fL [facility] RBC 4.20 3.90 - 5.20 M/cumm [facility] MCV 90.0 81.3 - 96.4 fL [facility] MCH 31.0 27.1 - 33.3 pg [facility] MCHC 34.4 32.3 - 35.7 g/dL [facility] RDW CV 12.3 11.1 - 14.9 % [facility] RDW SD 39.9 35.7 - 48.1 fL [facility] NRBC abs 0.00 0.00 - 0.01 K/cumm [facility] ANC Prelim 5.46 1.50 - 6.50 K/cumm [facility] Comment: Interpretive Data The rapid ANC is a preliminary automated count and may vary from the final ANC (Neut Abs) reported in the WBC differential that follows. Current interpretive data was last revised 2024. Blood 10/28/2024 11:2 5 AM CDT 10/28/2024 11:25 AM CDT Lottie Donohue MD LAB BLOOD ORDERABLES Final Resul t [facility] Department [place] [address] * Vitamin D 25 hydroxy (10/28/2024 11:25 AM CDT) Pathologist [facility] Vitamin D 25-OH 44 30 - 80 ng/mL Blood 10/28/2024 11:2 5 AM CDT 10/28/2024 1:06 PM CDT Lottie Donohue MD LAB BLOOD ORDERABLES Final Resul t Performing Organization Address [facility] de Phone Number [facility] Department [place] [address] * Comprehensive metabolic panel (10/28/2024 11:25 AM CDT) [facility] Sodium 139 135 - 145 mmol/L Comment:Testing performed by : [facility], [address] [place] [address] Potassium, pl 4.0 3.3 - 4.9 mmol/L [facility] Chloride 105 97 - 110 mmol/L [facility] CO2 28 22 - 32 mmol/L [facility] Anion gap 6 2 - 15 mmol/L [facility] BUN 9 6 - 25 mg/dL [facility] Creatinine 0.74 0.60 - 1.10 mg/dL [facility] Glucose 81 70 - 199 mg/dL [facility] Comment: Interpretive Data Fasting glucose >/= 126 mg/dl is diagnostic for diabetes. Fasting is defined as no caloric intake for at least 8 hours. Fasting glucose between 100 mg/dl to 125 mg/dl is diagnostic of prediabetes. In a patient with classic symptoms of hyperglycemia or hyperglycemic crisis, a random glucose >/= 200 mg/dl is diagnostic for diabetes. In the absence of unequivocal hyperglycemia, results should be confirmed by repeat testing. The classification and Diagnosis of Diabetes Diabetes Care 202; 46: S19-S40. Current interpretive data was last revised 2022. Calcium 9.7 8.5 - 10.3 mg/dL [facility] Bilirubin, total 0.3 0.1 - 1.2 mg/dL [facility] Protein, pl 7.3 6.5 - 8.5 g/dL [facility] Albumin 4.2 3.5 - 5.0 g/dL [facility] Alk phos 68 40 - 130 Units/L [facility] ALT 45 7 - 45 Units/L [facility] AST 34 10 - 45 Units/L [facility] Blood 10/28/2024 11:2 5 AM CDT 10/28/2024 11:25 AM CDT us Lottie Donohue MD LAB BLOOD ORDERABLES Final Resul t [facility] Department [place] [address] * CT Chest WO Contrast (10/28/2024 9:21 AM CDT) Anatomical Region Laterality Modality Body N/A Computed Tomogra phy 10/28/2024 9:36 AM CDT Impressions 10/28/2024 9:36 AM CDT Unchanged subcentimeter right lung nodules. One-year follow-up could be obtained to ensure two-year stability. Electronically signed by: Burt Castro M.D. Narrative 10/28/2024 9:36 AM CDT EXAMINATION: Computed tomography of the chest without intravenous contrast HISTORY: Left breast cancer. TECHNIQUE: Transaxial computed tomographic images of the chest were obtained without intravenous contrast according to the standard protocol. COMPARISON: CT dated 04/29/2024, 10/31/2023. FINDINGS: Bilateral mastectomies and breast implants noted. No thoracic lymphadenopathy. The heart size is normal. No pericardial effusion. Esophagus is decompressed. Small right middle and lower lobe pulmonary nodules are unchanged. For reference, a 4 mm right lower lobe pulmonary nodule seen on table position -613.5 is unchanged. No new pulmonary nodule or mass. No consolidation pleural effusion or pneumothorax. Imaged upper abdomen shows diffuse hepatic steatosis. No suspicious osseous lesion. Procedure Note Burt Castro MD - 10/28/2024 EXAMINATION: Computed tomography of the chest without intravenous contrast HISTORY: Left breast cancer. TECHNIQUE: Transaxial computed tomographic images of the chest were obtained without intravenous contrast according to the standard protocol. COMPARISON: CT dated 04/29/2024, 10/31/2023. FINDINGS: Bilateral mastectomies and breast implants noted. No thoracic lymphadenopathy. The heart size is normal. No pericardial effusion. Esophagus is decompressed. Small right middle and lower lobe pulmonary nodules are unchanged. For reference, a 4 mm right lower lobe pulmonary nodule seen on table position -613.5 is unchanged. No new pulmonary nodule or mass. No consolidation pleural effusion or pneumothorax. Imaged upper abdomen shows diffuse hepatic steatosis. No suspicious osseous lesion. IMPRESSION: Unchanged subcentimeter right lung nodules. One-year follow-up could be obtained to ensure two-year stability. Electronically signed by: Burt Castro M.D. Lottie Donohue MD IMG CT PROCEDURES Final Result from Last 3 Months Insurance [facility] CHOICE PLUS [facility] CHOICE PLUS [facility] CHOICE PLUS Advance Directives For more information, please contact: [phone] * Full Code (Latest Code Status on File) Date Activated Date Inactivated Comments 05/12/2021 9:11 PM 05/13/2021 6:08 PM Care Teams Home School Coordinator Relationship Specialty Start Date End Date Toribio Garcia MD [address] [place] [address] PCP - General 03/10/21 Toribio Garcia MD [address] [place] [address] Referring Physician Obstetrics and Gynecology 03/01/21
--- OUTSIDE RECORDS SUMMARY | 2024-12-23 19:39 | XMS_ITS | Continuity of Care Document ---
Author Organization [facility] Address [address] [place] [address] Phone Care Team Providers Care Spanish Interpreter Name Role Phone Unavailable Unavailable Unavailable Advance Directives Directive Yes / No Effective Date File Name No Information Encounters Encounter Description Practice Location Reason(s) For Visit Diagnoses Date Provider Providers Copied on Encounter [facility], [address] [place], [place], [id number], tel:[phone] [facility] No Information No Information Referring Provider: EF[facility] Tyler, [address] [facility], [place], [address]. tel:[phone] Family History Family Member Type Diagnosis Age At Onset No Information Payers Payer name Insurance type Covered libertarian ID Authoriza ticarlos(s) [facility] [id number] CI [id number] Social History Type Description Quantity Date Captured Comments Sex Female Smoking Status No Information Chief Complaint And Reason For Visit No Information History Of Present Illness Encounter Date Complaint History Of Prese nt Illness No Information Instructions Date Instruction Additional Infor mation No Information Assessments Type Assessment Date No Information
--- OUTSIDE RECORDS SUMMARY | 2024-12-23 19:39 | XMS_ITS | Clinical Summary ---
Author Organization [facility] Address [facility] [place] [address] Care Team Providers Care Medical Physics Professor Name Role Phone Toribio Garcia MD Unavailable [phone] Toribio Garcia MD Primary Care Provider [phone] Allergies No known active allergies Medications multivitamin [...] (10/02/2021): Added automatically from request for surgery [id number] Malignant neoplasm of overla pping sites of left female breast 07/03/2021 Dysuria 04/10/2021 Threatened miscarriage 04/10/2021 Abnormal mammography 03/12/2021 state, incidental 12/02/2011 GBS (group B Streptococcus c arrier), +RV culture, currently 11/05/2011 Choroid plexus cysts, , affecting care of mother, antepartum 07/12/2011 Encounters Date Type Department Care Team Description 12/23/2024 Telephone [facility] at [address] [phone] April Akers NP 12/21/2024 2:27 PM CDT - 12/21/2024 11:59 PM CDT Hospital Encounter [address] [address] Acute cystitis with hematuria Discharge Disposition: Discharge to home or self care 12/21/2024 2:15 PM CDT Office Visit [facility] at [address] [address] April Akers NP Acute cystitis with hematuria (Primary Dx) 12/11/2024 Results Follow-Up [facility] at [address] [phone] Olga Apple NP Urine culture Urine, clean voided 12/08/2024 3:07 PM CDT - 12/08/2024 11:59 PM CDT Hospital Encounter [address] [address] Acute cystitis with hematuria Discharge Disposition: Discharge to home or self care 12/08/2024 3:00 PM CDT Office Visit [facility] at [address] [phone] Rosi Leos NP Acute cystitis with hematuria (Primary Dx) 10/28/2024 11:45 AM CDT Office Visit [facility] [address] [place] [phone] Lottie Donohue MD Invasive ductal carcinoma of breast, female, left (HCC) (Primary Dx) 10/28/2024 11:15 AM CDT Lab [facility] [address] [place] [address] Invasive ductal carcinoma of breast, female, left (HCC) 10/28/2024 9:12 AM CDT - 10/28/2024 11:59 PM CDT Hospital Encounter [facility] at [facility] [address] [place] [address] Invasive ductal carcinoma of breast, female, left (HCC) Discharge Disposition: Discharge to home or self care 10/12/2024 Telephone [facility] [address] [facility] [address] [place] [address] Tonya Ferraro RMA from Last 3 Months Immunizations Immunization Administration Dates Next Due Influenza, Quadrivalent, Spl it, Preservative Free, Intramuscular 03/31/2015 Moderna SARS-CoV-2 Monovalent Vaccination (12+ Y RS) 03/31/2021 Tdap 03/29/2015,12/08/2011 Surgical History Surgery Date Site/Laterality Comments BREAST BIOPSY 03/10/2021 Left SECTION 2011, 2014 ABLATION 06/24/2015 - 06/23/2016 uterine TENDON REPAIR 2000? Left MASTECTOMY 04/24/2021 - 05/23/2021 Medical History Medical History Date Comments PONV (postoperative nausea and vomiting) Motion sickness Cancer (HCC) Family History Medical History Relation Name Comments No Known Problems Father No Known Problems Mother Hyperlipidemia Paternal Grandmother Hypertension Paternal Grandmother Anesthesia problems Neg Hx Relation Name Status Comments Father Mother Paternal Grandmother Social History Tobacco Use Types Packs/Day Years [...] on file Sexual Orientation Not on file Obstetrics History Last Filed Vital Signs Vital Sign Reading [...] 10/28/2024 12:10 PM CDT Plan of Treatment Health Maintenance Due Date Last Done Comments Breast Cancer Screening-Mammogram 1980 Cervical Cancer Screening 1980 Depression Screening 1980 Hepatitis C Screening 1980 Varicella Vaccines (1 of 2 - 13+ 2-dose series) 01/12/1993 Hepatitis B Screening 01/12/1998 Regular Well Visit/Exam 18-64 01/12/1998 Pneumococcal vaccine <65 (1 of 2 - PCV) 01/12/1999 Zoster Vaccine (1 of 2) 01/12/1999 Covid-19 Vaccine (4 - 2023-2 5 season) 2024 05/01/2021, 03/31/2021, 09/30/2020 Influenza Vaccine (#1) 2025 03/31/2015 DTaP/Tdap/Td Vaccine (3 - Td or Tdap) 03/29/2025 03/29/2015, 12/08/2011 HPV Vaccines Aged Out No longer eligi ble based on patient's age to complete this topic Medical Devices Implanted Type Area Marine Diver Device Identifier Shelf Expiration Date Model / Serial / Lot [employer] Natrelle Inspira Smooth Gel Xfull Profile Implant 495cc Breast Ssx-495 - [id number] - [id number] Implanted:Qty : 1 on 10/16/2021 by Francesco Fleming MD at [facility] Breast Left: Breast [employer] [id number] 05/10/2023 SSX-495 / [id number] / [employer] Ssx-495 Natrelle Inspira Smooth Gel Xfull Profile Implant 495cc Breast - [id number] - [id number] Implanted:Qty : 1 on 10/16/2021 by Francesco Fleming MD at [facility] Breast Right: Breast [employer] [id number] 11/05/2023 SSX-495 / [id number] / Matrix Tissue 16x6cm Alloderm Select Thk.4-2.4mm Thick - [id number] Implanted:Qty : 1 on 05/12/2021 by Francesco Fleming MD at [facility] Right: Breast [employer] 03/23/2022 [id number] / / [id number] Matrix Tissue 16x6cm Alloderm Select Thk.4-2.4mm Thick - [id number] Implanted:Qty : 1 on 05/12/2021 by Francesco Fleming MD at [facility] Left: Breast [employer] 04/23/2022 [id number] / / [id number] [employer] [id number] Magtrace Liquid Marker 10 Vial Carton - [id number] Implanted:Qty : 1 on 05/12/2021 by Maricruz Howard MD PhD at [facility] Left: Breast [employer] 11/21/2022 [id number] / / [id number] Explanted Type Area Marine Diver Device Identifier Shelf Expiration Date Model / Serial / Lot [employer] [id number]-[id number] Implant Mammary Natrelle Te Smooth 462q-Xq-73-T With Fourte - [id number] - [id number] Implanted:Qty : 1 on 05/12/2021 by Francesco Fleming MD at [facility] Explanted:Qty : 1 on 10/16/2021 by Francesco Fleming MD at [facility] Right: Breast [employer] [id number] 03/26/2025 133S-MX-1 3-T / [id number] / [employer] 180x-Fg-47-T Implant Mammary Natrelle Te Smooth 266r-Cf-69-T With Fourte - [id number] - [id number] Implanted:Qty : 1 on 05/12/2021 by Francesco Fleming MD at [facility] Explanted:Qty : 1 on 10/16/2021 by Francesco Fleming MD at [facility] Left: Breast [employer] [id number] 02/27/2025 133S-MX-1 3-T / [id number] / Procedures Procedure Name Priority Date/Time Associated [...] Negative Ketones, ur, POC Negative Negative Specific [place], POC 1.005 1.003 - 1.030 Blood, ur, POC Moderate(A) Negative pH, ur, POC 6.0 5.0 - 8.0 Protein, ur, POC 30.(A) Negative Urobilinogen, urine, POC 0.2 0.2 - 1.0 mg/dL Nitrite, ur, POC Negative Negative Leukocytes, ur, POC Large(A) Negative Lot Number [id number] Urine 12/21/2024 2:28 PM CDT April Akers NP POINT OF CARE TEST ORDERABLES F inal Result * (ABNORMAL) Urine culture Urine, clean voided (12/08/2024 3:07 PM CDT) Report Final Report: Greater than or equal to 100,000 colonies/mL of Escherichia coli (.) Comment:Testing performed by : [facility], [address] [facility], [place]., [address] Organism ESCHERICHIA COLI [facility] Urine, clean voided 12/08/2024 3:07 PM CDT 12/09/2024 12:12 AM CDT Narrative [facility] - 12/11/2024 6:12 AM CDT Testing performed by [facility] ([phone]) Organism Antibiotic Method Susceptibility Escherichia coli Ampicillin [...] MICROBIOLOGY - GENERAL ORD ERABLES Final Result [facility] [address] Department [place] [address] * (ABNORMAL) POCT urinalysis dipstick (12/08/2024 3:06 PM CDT) Color, Urine, POC Yellow Clarity, ur, POC Cloudy(A) Clear Glucose, ur, POC Negative Negative Bilirubin, ur, POC Negative Negative Ketones, ur, POC Negative Negative Specific [place], POC 1.010 1.003 - 1.030 Blood, ur, POC Large(A) Negative pH, ur, POC 6.0 5.0 - 8.0 Protein, ur, POC 30.(A) Negative Urobilinogen, urine, POC 0.2 0.2 - 1.0 mg/dL Nitrite, ur, POC Negative Negative Leukocytes, ur, POC Moderate(A) Negative Lot Number [id number] Urine 12/08/2024 3:06 PM CDT us Rosi Leos NP POINT OF CARE TEST [...] MD LAB BLOOD ORDERABLES Final Resul t [facility] Department [place] [address] * Differential, auto (10/28/2024 11:25 AM CDT) [facility] Neutrophil abs 5.46 1.50 - 6.50 K/cumm Comment:Testing performed by : [facility], [address] [place] [address] Imm gran abs 0.10 0.00 - 0.10 K/cumm [facility] Lymphocyte abs 1.86 0.80 - 3.30 K/cumm [facility] Monocyte abs 0.77 0.20 - 0.80 K/cumm [facility] Eosinophil abs 0.13 0.00 - 0.50 K/cumm [facility] Basophil abs 0.06 0.00 - 0.10 K/cumm [facility] Neutrophil pct 65.1 % [facility] Comment: Interpretive Data Percent cell count reference ranges are not reported, since discordance with absolute values may lead to misinterpretation of CBC data. Current Interpretive Data was last revised on 2017. Imm gran pct 1.2 % [facility] Comment: Interpretive Data Percent cell count reference ranges are not reported, since discordance with absolute values may lead to misinterpretation of CBC data. Current Interpretive Data was last revised on 2017. Lymphocyte pct 22.2 % [facility]DA Comment: Interpretive Data Percent cell count reference ranges are not reported, since discordance with absolute values may lead to misinterpretation of CBC data. Current Interpretive Data was last revised on 2017. Monocyte pct 9.2 % [facility] Comment: Interpretive Data Percent cell count reference ranges are not reported, since discordance with absolute values may lead to misinterpretation of CBC data. Current Interpretive Data was last revised on 2017. Eosinophil pct 1.6 % [facility] Comment: Interpretive Data Percent cell count reference ranges are not reported, since discordance with absolute values may lead to misinterpretation of CBC data. Current Interpretive Data was last revised on 2017. Basophil pct 0.7 % [facility] Comment: Interpretive Data Percent cell count reference ranges are not reported, since discordance with absolute values may lead to misinterpretation of CBC data. Current Interpretive Data was last revised on 2017. Blood 10/28/2024 11:2 5 AM CDT 10/28/2024 11:25 AM CDT us Lottie Donohue MD LAB BLOOD ORDERABLES Final Resul t [facility] Department [place] [address] * (ABNORMAL) CBC with auto differential (10/28/2024 11:25 AM CDT) WBC 8.38 3.80 - 9.90 K/cumm Comment:Testing performed by : [address] [address] Hgb 13.0 11.9 - 15.5 g/dL [facility]ANDA Comment:Testing performed by : [address] [address] Hct 37.8 35.6 - 45.5 % [facility] Comment:Testing performed by : [facility], [address] [place] [address] Plt 230 150 - 400 K/cumm [facility] Comment:Testing performed by : [facility], [address] [place] [address] MPV 8.5(L) 9.1 - 12.3 fL [facility] RBC 4.20 3.90 - 5.20 M/cumm [facility] MCV 90.0 81.3 - 96.4 fL [facility] MCH 31.0 27.1 - 33.3 pg [facility] MCHC 34.4 32.3 - 35.7 g/dL [facility] RDW CV 12.3 11.1 - 14.9 % [facility] RDW SD 39.9 35.7 - 48.1 fL [facility] NRBC abs 0.00 0.00 - 0.01 K/cumm [facility] ANC Prelim 5.46 1.50 - 6.50 K/cumm [facility] Comment: Interpretive Data The rapid ANC is a preliminary automated count and may vary from the final ANC (Neut Abs) reported in the WBC differential that follows. Current interpretive data was last revised 2024. Blood 10/28/2024 11:2 5 AM CDT 10/28/2024 11:25 AM CDT Lottie Donohue MD LAB BLOOD ORDERABLES Final Resul t [facility] Department [place] [address] * Vitamin D 25 hydroxy (10/28/2024 11:25 AM CDT) Pathologist [facility] Vitamin D 25-OH 44 30 - 80 ng/mL Blood 10/28/2024 11:2 5 AM CDT 10/28/2024 1:06 PM CDT Lottie Donohue MD LAB BLOOD ORDERABLES Final Resul t [facility] Department [place] [address] * Comprehensive metabolic panel (10/28/2024 11:25 AM CDT) Sodium 139 135 - 145 mmol/L Comment:Testing performed by : [facility], [address] [place] [address] Potassium, pl 4.0 3.3 - 4.9 mmol/L [facility] Chloride 105 97 - 110 mmol/L [facility] CO2 28 22 - 32 mmol/L [facility] Anion gap 6 2 - 15 mmol/L [facility] BUN 9 6 - 25 mg/dL [facility] Creatinine 0.74 0.60 - 1.10 mg/dL [facility] Glucose 81 70 - 199 mg/dL [facility] Comment: Interpretive Data Fasting glucose >/= 126 [...] 2022. Calcium 9.7 8.5 - 10.3 mg/dL [facility] Bilirubin, total 0.3 0.1 - 1.2 mg/dL [facility] Protein, pl 7.3 6.5 - 8.5 g/dL [facility] Albumin 4.2 3.5 - 5.0 g/dL [facility] Alk phos 68 40 - 130 Units/L [facility] ALT 45 7 - 45 Units/L [facility] AST 34 10 - 45 Units/L [facility] Blood 10/28/2024 11:2 5 AM CDT 10/28/2024 11:25 AM CDT Lottie Donohue MD LAB BLOOD ORDERABLES Final Resul t [facility] Department [place] [address] * CT Chest WO Contrast (10/28/2024 9:21 [...] Final Result from Last 3 Months Insurance [facility] CHO[facility] PLUS [facility] CHO[facility] PLUS CHOICE PLUS Advance Directives For more information, please contact: [phone] * Full Code (Latest Code Status on File) Date Activated Date Inactivated Comments 05/12/2021 9:11 PM 05/13/2021 6:08 PM Care Teams Medical Physics Professor Relationship Specialty Start Date End Date Toribio Garcia MD [address] [place] [address] PCP - General 03/10/21 Toribio Garcia MD [address] [place] [address] Referring Physician Obstetrics and Gynecology 03/01/21
--- OUTSIDE RECORDS SUMMARY | 2024-12-23 19:39 | XMS_ITS | Encounter Summary ---
Author Organization [facility] Healthcare Address [address] [place] [address] Care Team Providers Care Market Garden Worker Name Role Phone Toribio Garcia MD Unavailable [phone] Toribio Garcia MD Primary Care Provider [phone] Encounter Details Date Type Department Care Team (Latest Contact Info) Description 12/21/2024 2:27 PM CDT - 12/21/2024 11:59 PM CDT Hospital Encounter [address] [address] Acute cystitis with hematuria Discharge Disposition: Discharge to home or self care Social History Tobacco Use Types Packs/Day Years [...] on file documented as of this encounter Medications at Time of Discharge cholecalciferol, vitamin D3, (VITAMIN D3 ORAL) Take 2,000 Units by mouth daily gabapentin (NEURONTIN) 300 mg capsule TAKE 1 CAPSULE NIGHTLY 90 capsule 3 10/28/2024 ibuprofen (ADVIL,MOTRIN) 200 mg tab/cap Take 2 tablet/capsule (400 mg total) by mouth every 6 (six) hours as needed for pain multivitamin capsule Take 1 capsule by mouth every morning Drive tamoxifen (NOLVADEX) 20 mg tabletIndication s:Invasive ductal carcinoma of breast, female, left (HCC) Take 1 tablet (20 mg total) by mouth daily 90 tablet 3 10/28/2024 UNABLE TO FIND Take by mouth every morning Med Name: Thrive Shake with vitamins cephalexin (KEFLEX) 500 mg capsuleIndicatio ns:Acute cystitis with hematuria Take 1 capsule (500 mg total) by mouth 2 (two) times a day for 5 days 10 capsule 12/21/2024 12/26/2024 documented as of this encounter Discharge Disposition Disposition Code Departure Means Destination Discharge to home or self care documented in this encounter Plan of Treatment Pending Results Name Type Priority Associated Diagnoses Date /Time Urine culture Urine, clean voided Microbiology Routine Acute cystitis with hematuria 12/21/2024 2:27 PM CDT documented as of this encounter Procedures Procedure Name Priority Date/Time Associated Diagnosis Comments URINE CULTURE Routine 12/21/2024 2:27 PM CDT Acute cystitis with hematuria documented in this encounter Visit Diagnoses Diagnosis Acute cystitis with hematuria documented in this encounter Care Teams Market [employer] Worker Relationship Specialty Start Date End Date Toribio Garcia MD [address] [place] [address] PCP - General 03/10/21 Toribio Garcia MD [address] [place] [address] Referring Physician Obstetrics and Gynecology 03/01/21 documented as of this encounter
--- OUTSIDE RECORDS SUMMARY | 2024-12-23 19:39 | XMS_ITS | Encounter Summary ---
Author Organization [facility] Healthcare Address [address] [place] [address] Care Team Providers Care Director Of Therapy Services Name Role Phone Toribio Garcia MD Unavailable [phone] Toribio Garcia MD Primary Care Provider [phone] Encounter Details Date Type Department Care Team (Late st Contact Info) Description 12/11/2024 Results Follow-Up [facility] Convenient Care at [address] [phone] Olga Apple NP [address] [place] [address] [address] [place] [address] Urine culture Urine, clean voided Social History Tobacco Use Types Packs/Day Years [...] on file documented as of this encounter Plan of Treatment Not on file documented as of this encounter Visit Diagnoses Not on filedocumented in this encounter Care Teams Director Of Therapy Services Relationship Specialty Start Date End Date Toribio Garcia MD [address] [place] [address] PCP - General 03/10/21 Toribio Garcia MD [address] [place], [place] [address] Referring Physician Obstetrics and Gynecology 03/01/21 documented as of this encounter
--- NOTE | 2024-12-23 20:02 | ED_ITS ---
HPI - Female Genitourinary General Chief complaint: Urogenital-Female Stated complaint: uti Time Seen by Provider: 12/23/24 19:46 Source: patient Mode of arrival: ambulatory Limitations: no limitations History of Present Illness HPI Narrative: Patient presents with concern for a worsening urinary tract infection. She had been having dysuria which has since resolved. She would [facility] urgent care on Saturday was diagnosed with a urinary tract infection and prescribed Keflex 500 mg 1 tablet b.i.d.. She is currently on day 3 and has taken 5 doses. She will occasionally experience suprapubic pain but in general is now experiencing bilateral flank pain as well as fever, headache, nausea and 1 episode of emesis on Saturday. She did call the Urgent Care and was told that the urine culture suggested that she was on the appropriate antibiotic. Of note she was diagnosed with a urinary tract infection 3 weeks ago at the same location and prescribed nitrofurantoin. She has the culture from this date, 12/08/2024, on her chart for review which does show greater than 100,000 colony-forming units of E coli. Does not have culture results from most recent visit in her patient portal. She has never had complicated urinary tract infection/kidney infections before. She took 2 Aleve, 200 mg tablets at 5:00 p.m.. She does not have a primary care physician but does have an Ob Gyne. Traveling out of town this weekend to [place] [facility] approximately 1 hour away so she wanted to make sure she was evaluated and didn't need alternative therapy. Related Data Home Medications ?Medication ?Instructions ?Recorded ?Confirmed ?Last Taken ?Type gabapentin 300 mg capsule 300 mg PO DIRECTED 03/13/23 09/15/24 Unknown History cholecalciferol (vitamin D3) 50 50 mcg PO DAILY 09/10/23 09/15/24 Unknown History mcg (2,000 unit) capsule Allergies Allergy/AdvReac Type Severity Reaction Status Date / Time No Known Allergies Allergy Verified 12/23/24 19:38 [facility] Past Medical History Medical History E. coli UTI 12/08/24 Breast cancer Surgical History Surgical History S/P endometrial ablation 2015 H/O tubal ligation 2015 History of bilateral mastectomy (05/12/21) invasive ductal carcinoma / breast implants Social History Social History (Updated 09/15/24 @ 16:32 by Carina Yoon [facility]) Smoking status: Never smoker Second hand tobacco smoke exposure: No Alcohol intake: current Drinks per week: 4 Substance use: never Substance use type: does not use Do You Feel Safe in your Home?: Yes Lack of Transportation: No Lack of Food: Never True Current Housing: Decline to Answer Concerned About Future Housing: Decline to Answer Difficulty Paying Gas/Electric Bills: Decline to Answer Difficulty Paying for Meds: Decline to Answer Currently Unemployed: Decline to Answer Education: Decline to Answer Difficulty w/ Childcare or Family Care: Decline to Answer Living arrangements: with family Additional living arrangements comments: Occupation/Education: 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 Gender identity (if verbalized by the patient): Female Sexual Orientation (if Verbalized by the Patient): Straight or Heterosexual Exam Narrative: GENERAL: Well-appearing, well-nourished, and in no acute distress. HEAD: Normocephalic, atraumatic. EYES: Non injected, non icteric ENT: Nares clear, no rhinorrhea or epistaxis. Gross auditory acuity intact. NECK: Supple. No meningismus. CHEST: Speaking in full sentences. No respiratory distress. HEART: Regular rate and rhythm. . ABDOMEN: Soft, nondistended. EXTREMITIES: Normal range of motion. BACK: No CVA tenderness bilaterally. SKIN: Warm, dry NEURO: No focal deficits. Alert and oriented. Answering questions. Following commands. Normal speech without aphasia or dysarthria. PSYCH: Normal mood and affect. Course Vital Signs Vital signs: Vital Signs Temperature 98.1 F 12/23/24 19:38 Pulse Rate 108 H 12/23/24 19:38 Respiratory Rate 12/23/24 19:38 Blood Pressure 129/93 H 12/23/24 19:38 Pulse Oximetry 100 12/23/24 19:38 Temperature 98.1 F 12/23/24 19:38 Pulse Rate 108 H 12/23/24 19:38 Respiratory Rate 12/23/24 19:38 Blood Pressure 129/93 H 12/23/24 19:38 Pulse Oximetry 100 12/23/24 19:38 MDM - Female Genitourinary MDM Narrative Medical decision making narrative: Patient presents concern for a worsening urinary tract infection. Recently diagnosed with the UTI at [facility] urgent care on the 30 is in currently on 500 mg 1 tablet b.i.d. cephalexin. She is on day 3 of therapy. She has started to develop bilateral flank pain, fevers, headache, and 1 episode of emesis. In the emergency department she is afebrile vital signs notable for mild tachycardia. Blood pressure is acceptable although elevated diastolic blood pressure. test negative. She was told that the cephalexin should respond to the infection based on the most recent urine culture although cannot see that on her patient portal. Her most recent urine culture from 12/08/2024 was positive for E coli and at that time she had taken a course of nitrofurantoin. No previous urine culture in our EMR to guide therapy. She has 5 tablets left of cephalexin. We discussed that in general dosing for urinary tract infection with Keflex should be more frequent throughout the day than what she was initially prescribed. In addition, given the concern for pyelonephritis, the duration of therapy should be increased. Will defer changing antibiotics at this time trial this instead. Given she is approaching the day 3 collin, we discussed the possibility of an abscess and therefore obtaining labs and CT imaging; shared decision making with patient and it is reasonable that we defer this at present and trial a more appropriate dosing strategy 1st. She is given return precautions verifies understanding. Urinalysis is abnormal. Reflexes to culture. Otherwise stable for discharge. Given a dose of cephalexin, Zofran, and IM ketorolac while in the emergency department. Differential Diagnosis Differential diagnosis: Likely urinary tract infection (Pyelonephritis), ovarian cyst, ruptured ovarian cyst and other (Considered abscess; kidney stone/infected stone; musculoskeletal) Lab Data Attestation: I reviewed the patient's lab results. Labs: Lab Results 12/23/24 12/23/24 Range/Units 19:59 20:00 Urine Color Yellow (Yellow) Urine Appearance Cloudy H (Clear) Urine pH 5.5 (5.0-9.0) Ur Specific [place] 1.013 (1.001-1.035) Urine Protein Trace (Negative) mg/dL Urine Glucose (UA) Negative (Negative) mg/dL Urine Ketones Negative (Negative) mg/dL Ur Blood (Man) 3+ H (Negative) Urine Nitrate Negative (Negative) Urine Bilirubin Negative (Negative) Urine Urobilinogen 1.0 (<2.0) mg/dL Leukocyte Esterase Rfl Trace H (Negative) REGLA/UL Urine RBC 21-50 H (0-2) /hpf Urine WBC 6-10 H (0-3) /hpf Ur Squamous Epith Cells Occasional (Few) /hpf Urine Bacteria Rare /hpf Urine Casts 0-2 POC Urine HCG, Qual Negative (Negative) Discharge Plan Discharge Clinical Impression: Pyelonephritis Patient Disposition: Home Condition: Stable Instructions: Antibiotic Form Additional Instructions: The name of a primary care physician is provided below since you do not have one. Acetaminophen/Tylenol (maximum 4000 mg per day) is safe to take with NSAIDs (ibuprofen/Motrin) for pain relief/fever. The oral disintegrating tablets of Zofran can help with nausea and vomiting. A longer duration and more frequent dosing the antibiotic has been prescribed. This is typically treated with a 10-14 day course so you can continue to take the remaining 5 tablets you already have if desired as well. Your urine culture is in process here. As we discussed, if with the more frequent dosing of the medication you are still having symptoms, return to the emergency department as this may warrant further investigation (such as labs, imaging, etc). Patient Language: Citizen Of [place] Prescriptions: New cephalexin 500 mg tablet 500 mg PO Q6H 10 Days Qty: 40 0RF ondansetron 4 mg tablet,disintegrating 4 mg PO Q8H PRN (Reason: nausea and vomiting) Qty: 7 0RF acetaminophen 500 mg capsule 1,000 mg PO Q6H PRN (Reason: pain) Qty: 30 0RF No Action gabapentin 300 mg capsule 300 mg PO DIRECTED cholecalciferol (vitamin D3) 50 mcg (2,000 unit) capsule 50 mcg PO DAILY Follow-up/Referrals: PHYSICIAN,TOURISM RADIO PRESENTER [Primary Care Provider] - William Chavez MD [Physician] - (Family practice) Stand Alone Forms: Work/School Release IP Time of Disposition: 20:49
[2024-12-23 20:03] LABS: BEDSIDEPREGUCG Negative (Negative)
--- OUTSIDE RECORDS SUMMARY | 2024-12-23 20:29 | XMS_ITS | Continuity of Care Document ---
Author Organization [facility] Address [address] [place] [address] Phone Care Team Providers Care Test Tech Name Role Phone Unavailable Unavailable Unavailable Advance Directives Directive Yes / No Effective Date File Name No Information Encounters Encounter Description Practice Location Reason(s) For Visit Diagnoses Date Provider Providers Copied on Encounter [facility], [address] [place], [place], [id number], tel:[phone] [facility] No Information No Information Referring Provider: EFRA Tyler, [address] [facility] [address], [place], [address]. tel:[phone] Family History Family Member Type Diagnosis Age At Onset No Information Payers Payer name Insurance type Covered constitution party ID [facility] [id number] [facility] [id number] Social History Type Description Quantity Date Captured Comments Sex Female Smoking Status No Information Chief Complaint And Reason For Visit No Information History Of Present Illness Encounter Date Complaint History Of Prese nt Illness No Information Instructions Date Instruction Additional Infor mation No Information Assessments Type Assessment Date No Information
--- OUTSIDE RECORDS SUMMARY | 2024-12-23 20:29 | XMS_ITS ---
Author Organization [facility] Address [address] [place] [address] Care Team Providers Care Automatic Lathe Setter Name Role Phone Toribio Garcia MD Unavailable [phone] Toribio Garcia MD Primary Care Provider [phone] Active Problems Problem Noted Date Diagnosed Date History of breast cancer 10/02/2021 Overview (10/02/2021): Added automatically from request for surgery [id number] Malignant neoplasm of overla pping sites of [...]
--- OUTSIDE RECORDS SUMMARY | 2024-12-23 20:29 | XMS_ITS | Clinical Summary ---
Author Organization [facility] Address [facility]ly [facility] [place] [address] Care Team Providers Care Medical Insurance Verifier Name Role Phone Toribio Garcia MD Unavailable [phone] Toribio Garcia MD Primary Care Provider [phone] Allergies No known active allergies Medications multivitamin [...] (10/02/2021): Added automatically from request for surgery [id number] Malignant neoplasm of overla pping sites of left female breast 07/03/2021 Dysuria 04/10/2021 Threatened miscarriage 04/10/2021 Abnormal mammography 03/12/2021 state, incidental 12/02/2011 GBS (group B Streptococcus c arrier), +RV culture, currently 11/05/2011 Choroid plexus cysts, , affecting care of mother, antepartum 07/12/2011 Encounters Date Type Department Care Team Description 12/23/2024 Telephone [facility] at [address] [phone] April Akers NP 12/21/2024 2:27 PM CDT - 12/21/2024 11:59 PM CDT Hospital Encounter [address] [address] Acute cystitis with hematuria Discharge Disposition: Discharge to home or self care 12/21/2024 2:15 PM CDT Office Visit [facility] at [address] [phone] April Akers NP Acute cystitis with hematuria (Primary Dx) 12/11/2024 Results Follow-Up [facility] at [address] [phone] Olga Apple NP Urine culture Urine, clean voided 12/08/2024 3:07 PM CDT - 12/08/2024 11:59 PM CDT Hospital Encounter [address] [address] Acute cystitis with hematuria Discharge Disposition: Discharge to home or self care 12/08/2024 3:00 PM CDT Office Visit [facility] at [address] [phone] Rosi Leos NP Acute cystitis with hematuria (Primary Dx) 10/28/2024 11:45 AM CDT Office Visit [facility] [address] [place] [phone] Lottie Donohue MD Invasive ductal carcinoma of breast, female, left (HCC) (Primary Dx) 10/28/2024 11:15 AM CDT Lab [facility] [address] [place] [address] Invasive ductal carcinoma of breast, female, left (HCC) 10/28/2024 9:12 AM CDT - 10/28/2024 11:59 PM CDT Hospital Encounter [facility] at [facility] [address] [place] [address] Invasive ductal carcinoma of breast, female, left (HCC) Discharge Disposition: Discharge to home or self care 10/12/2024 Telephone [facility] [address] [facility] [address] [place] [address] Tonya Ferraro RMA from Last 3 Months [...] this topic Medical Devices Implanted Type Area Dry Mill Worker Device Identifier Shelf Expiration Date Model / Serial / Lot [employer] Natrelle Inspira Smooth Gel Xfull Profile Implant 495cc Breast Ssx-495 - [id number] - [id number] Implanted:Qty : 1 on 10/16/2021 by Francesco Fleming MD at [facility] Breast Left: Breast [employer] [id number] 05/10/2023 SSX-495 / [id number] / [employer] Ssx-495 Natrelle Inspira Smooth Gel Xfull Profile Implant 495cc Breast - [id number] - [id number] Implanted:Qty : 1 on 10/16/2021 by Francesco Fleming MD at [facility] Breast Right: Breast [employer] [id number] 11/05/2023 SSX-495 / [id number] / Matrix Tissue 16x6cm Alloderm Select Thk.4-2.4mm Thick - [id number] Implanted:Qty : 1 on 05/12/2021 by Francesco Fleming MD at [facility] Right: Breast [employer] 03/23/2022 [id number] / / [id number] Matrix Tissue 16x6cm Alloderm Select Thk.4-2.4mm Thick - [id number] Implanted:Qty : 1 on 05/12/2021 by Francesco Fleming MD at [facility] Left: Breast [employer] 04/23/2022 [id number] / / [id number] [employer] [id number] Magtrace Liquid Marker 10 Vial Carton - [id number] Implanted:Qty : 1 on 05/12/2021 by Maricruz Howard MD PhD at [facility] Left: Breast [employer] 11/21/2022 [id number] / / [id number] Explanted Type Area Dry Mill Worker Device Identifier Shelf Expiration Date Model / Serial / Lot [employer] [id number] Implant Mammary Natrelle Te Smooth 783k-Fp-75-T With Fourte - [id number] - [id number] Implanted:Qty : 1 on 05/12/2021 by Francesco Fleming MD at [facility] Explanted:Qty : 1 on 10/16/2021 by Francesco Fleming MD at [facility] Right: Breast [employer] [id number] 03/26/2025 [id number]-MX-1 3-T / [id number] / [employer] [id number]-[id number] Implant Mammary Natrelle Te Smooth 995g-Oi-12-T With Fourte - [id number] - [id number] Implanted:Qty : 1 on 05/12/2021 by Francesco Fleming MD at [facility] Explanted:Qty : 1 on 10/16/2021 by Francesco Fleming MD at [facility] Left: Breast [employer] [id number] 02/27/2025 133S-MX-1 3-T / [id number] / Procedures Procedure Name Priority Date/Time Associated [...] Negative Ketones, ur, POC Negative Negative Specific [place], POC 1.005 1.003 - 1.030 Blood, ur, POC Moderate(A) Negative pH, ur, POC 6.0 5.0 - 8.0 Protein, ur, POC 30.(A) Negative Urobilinogen, urine, POC 0.2 0.2 - 1.0 mg/dL Nitrite, ur, POC Negative Negative Leukocytes, ur, POC Large(A) Negative Lot Number [id number] Urine 12/21/2024 2:28 PM CDT April Akers NP POINT OF CARE TEST ORDERABLES F inal Result * (ABNORMAL) Urine culture Urine, clean voided (12/08/2024 3:07 PM CDT) Report Final Report: Greater than or equal to 100,000 colonies/mL of Escherichia coli (.) Comment:Testing performed by : [facility], [address] [facility], [place]., [address] Organism ESCHERICHIA COLI [facility] Urine, clean voided 12/08/2024 3:07 PM CDT 12/09/2024 12:12 AM CDT Narrative [facility] - 12/11/2024 6:12 AM CDT Testing performed by [facility] ([phone]) Organism Antibiotic Method Susceptibility Escherichia coli Ampicillin [...] - GENERAL ORD ERABLES Final Result [facility] [address] [place] [address] * (ABNORMAL) POCT urinalysis dipstick (12/08/2024 3:06 PM CDT) Color, Urine, POC Yellow Clarity, ur, POC Cloudy(A) Clear Glucose, ur, POC Negative Negative Bilirubin, ur, POC Negative Negative Ketones, ur, POC Negative Negative Specific [place], POC 1.010 1.003 - 1.030 Blood, ur, POC Large(A) Negative pH, ur, POC 6.0 5.0 - 8.0 Protein, ur, POC 30.(A) Negative Urobilinogen, urine, POC 0.2 0.2 - 1.0 mg/dL Nitrite, ur, POC Negative Negative Leukocytes, ur, POC Moderate(A) Negative Lot Number [id number] Urine 12/08/2024 3:06 PM CDT us Rosi [...] MD LAB BLOOD ORDERABLES Final Resul t [facility] [place] [address] * Differential, auto (10/28/2024 11:25 AM CDT) [facility] Neutrophil abs 5.46 1.50 - 6.50 K/cumm Comment:Testing performed by : [facility], [address] [place] [address] Imm gran abs 0.10 0.00 - 0.10 K/cumm [facility] Lymphocyte abs 1.86 0.80 - 3.30 K/cumm [facility] Monocyte abs 0.77 0.20 - 0.80 K/cumm [facility] Eosinophil abs 0.13 0.00 - 0.50 K/cumm [facility] Basophil abs 0.06 0.00 - 0.10 K/cumm [facility] Neutrophil pct 65.1 % [facility] Comment: Interpretive Data Percent cell count reference ranges are not reported, since discordance with absolute values may lead to misinterpretation of CBC data. Current Interpretive Data was last revised on 2017. Imm gran pct 1.2 % [facility] Comment: Interpretive Data Percent cell count [...] on 2017. Monocyte pct 9.2 % [facility] Comment: Interpretive Data Percent cell count reference ranges are not reported, since discordance with absolute values may lead to misinterpretation of CBC data. Current Interpretive Data was last revised on 2017. Eosinophil pct 1.6 % [facility] Comment: Interpretive Data Percent cell count reference ranges are not reported, since discordance with absolute values may lead to misinterpretation of CBC data. Current Interpretive Data was last revised on 2017. Basophil pct 0.7 % [facility] Comment: Interpretive Data Percent cell count reference ranges are not reported, since discordance with absolute values may lead to misinterpretation of CBC data. Current Interpretive Data was last revised on 2017. Blood 10/28/2024 11:2 5 AM CDT 10/28/2024 11:25 AM CDT us Lottie Donohue MD LAB BLOOD ORDERABLES Final Resul t [facility] Department [place] [address] * (ABNORMAL) CBC with auto differential (10/28/2024 11:25 AM CDT) WBC 8.38 3.80 - 9.90 K/cumm Comment:Testing performed by : [address] [address] Hgb 13.0 11.9 - 15.5 g/dL [facility] ARANDA Comment:Testing performed by : [address] [address] Hct 37.8 35.6 - 45.5 % [facility] Comment:Testing performed by : [facility], [address] [place] [address] Plt 230 150 - 400 K/cumm [facility] Comment:Testing performed by : [facility], [address] [place] [address] MPV 8.5(L) 9.1 - 12.3 fL [facility] RBC 4.20 3.90 - 5.20 M/cumm [facility] MCV 90.0 81.3 - 96.4 fL [facility] MCH 31.0 27.1 - 33.3 pg [facility] MCHC 34.4 32.3 - 35.7 g/dL [facility] RDW CV 12.3 11.1 - 14.9 % [facility] RDW SD 39.9 35.7 - 48.1 fL [facility] NRBC abs 0.00 0.00 - 0.01 K/cumm [facility] ANC Prelim 5.46 1.50 - 6.50 K/cumm [facility] Comment: Interpretive Data The rapid ANC is a preliminary automated count and may vary from the final ANC (Neut Abs) reported in the WBC differential that follows. Current interpretive data was last revised 2024. Blood 10/28/2024 11:2 5 AM CDT 10/28/2024 11:25 AM CDT Lottie Donohue MD LAB BLOOD ORDERABLES Final Resul t [facility] Department [place] [address] * Vitamin D 25 hydroxy (10/28/2024 11:25 AM CDT) Pathologist [facility] Vitamin D 25-OH 44 30 - 80 ng/mL Blood 10/28/2024 11:2 5 AM CDT 10/28/2024 1:06 PM CDT Lottie Donohue MD LAB BLOOD ORDERABLES Final Resul t [facility] Department [place] [address] * Comprehensive metabolic panel (10/28/2024 11:25 AM CDT) Sodium 139 135 - 145 mmol/L Comment:Testing performed by : [facility], [address] [place] [address] Potassium, pl 4.0 3.3 - 4.9 mmol/L [facility] Chloride 105 97 - 110 mmol/L [facility] CO2 28 22 - 32 mmol/L [facility] Anion gap 6 2 - 15 mmol/L [facility] BUN 9 6 - 25 mg/dL [facility] Creatinine 0.74 0.60 - 1.10 mg/dL [facility] Glucose 81 70 - 199 mg/dL [facility] Comment: Interpretive Data Fasting glucose >/= 126 [...] 2022. Calcium 9.7 8.5 - 10.3 mg/dL [facility] Bilirubin, total 0.3 0.1 - 1.2 mg/dL [facility] Protein, pl 7.3 6.5 - 8.5 g/dL [facility] Albumin 4.2 3.5 - 5.0 g/dL [facility] Alk phos 68 40 - 130 Units/L [facility] ALT 45 7 - 45 Units/L [facility] AST 34 10 - 45 Units/L [facility] Blood 10/28/2024 11:2 5 AM CDT 10/28/2024 11:25 AM CDT Lottie Donohue MD LAB BLOOD ORDERABLES Final Resul t [facility] Department [place] [address] * CT Chest WO Contrast (10/28/2024 9:21 [...] Final Result from Last 3 Months Insurance [facility] CHOICE PLUS [facility] CHOICE PLUS CHOICE PLUS Advance Directives For more information, please contact: [phone] * Full Code (Latest Code Status on File) Date Activated Date Inactivated Comments 05/12/2021 9:11 PM 05/13/2021 6:08 PM Care Teams Medical Insurance Verifier Relationship Specialty Start Date End Date Toribio Garcia MD [address] [place] [address] PCP - General 03/10/21 Toribio Garcia MD [address] [place] [address] Referring Physician Obstetrics and Gynecology 03/01/21
--- OUTSIDE RECORDS SUMMARY | 2024-12-23 20:29 | XMS_ITS | Clinical Summary ---
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 [employer] [facility] Mural Artist Pap Comment This Pap test has been evaluated with computer assisted technology. [employer] [facility] ADEQUACY: Satisfactory for evaluation. Endocervical/maya sformation zone component present. Age and/or menstrual status not provided [facility] Infrascale [facility] CLINICAL INFORMATION Information not provided [facility] In[employer]asc[employer] [facility] SOURCE Endocervix [facility] LABORATORY [facility] PREV PAP: WNL [facility] [employer] [facility] POWER HAMMER OPERATOR: [place], [place](ASCP) [facility] LABORATORY SERVICES [facility] LAST MENSTRUAL PERIOD INFORMATION NOT PROVIDED [facility] LABORATORY [facility] PREV BX: INFORMATION NOT PROVIDED [facility] LABORATORY [facility] HPV HIGH RISK DNA DETECTION NOT DETECTED NOT DETECTED [facility] LABORATORY [facility] Comment: Tested for high risk types 16,18,31,33,35,39,45,51,52, 56,58,59,68. The analytical performance characteristics of this assay, when used to test SurePath or vaginal specimens, have been determined by [employer]. Methodology: Hybrid Capture with Signal Amplification. Lab test performed by: [employer] [facility] [address] [place] [address] MELISSA CORADO DO P Endocervical 04/22/2012 12:1 2 PM CDT 04/22/2012 12:45 PM CDT Comment:ENDOCERVICAL us Corinna Jin MD PATHOLOGY/CYTOLOGY ORDERABLE S Edited [facility] LABORATORY [facility] CLIA# [id number] [address] [place] [address] from Last 3 Months or Most Recently Relevant to Health Maintenance Insurance [facility] [id number] Advance Directives For more information, please contact: [phone] * Full Code (Latest Code Status on File) Date Activated Date Inactivated Comments 12/02/2011 9:47 PM 12/08/2011 2:02 PM
--- OUTSIDE RECORDS SUMMARY | 2024-12-23 20:29 | XMS_ITS | Encounter Summary ---
Author Organization [facility] Healthcare Address [address] [place] [address] Care Team Providers Care Heavy Equipment Field Mechanic Name Role Phone Toribio Garcia MD Unavailable [phone] Toribio Garcia MD Primary Care Provider [phone] Encounter Details Date Type Department Care Team (Latest Contact Info) Description 12/21/2024 2:27 PM CDT - 12/21/2024 11:59 PM CDT Hospital Encounter [address] [address] Acute cystitis with hematuria Discharge Disposition: Discharge [...] this encounter Medications at Time of Discharge cephalexin (KEFLEX) 500 mg capsuleIndicatio ns:Acute cystitis with hematuria Take 1 capsule (500 mg total) by mouth 2 (two) times a day for 5 days 10 capsule 12/21/2024 12/26/2024 cholecalciferol, vitamin D3, (VITAMIN D3 ORAL) Take [...] Take by mouth every morning Med Name: Thrderic Shake with vitamins documented as of this encounter Discharge Disposition [...] hematuria documented in this encounter Care Teams Heavy Equipment Field Mechanic Relationship Specialty Start Date End Date Toribio Garcia MD [address] [place] [address] PCP - General 03/10/21 Toribio Garcia MD [address] [place] [address] Referring Physician Obstetrics and Gynecology 03/01/21 documented as of this encounter
--- OUTSIDE RECORDS SUMMARY | 2024-12-23 20:29 | XMS_ITS | Referral Summary ---
Author Organization [facility] Address [address] [place] [address] Care Team Providers Care Snow Ranger Name Role Phone Toribio Garcia MD Unavailable [phone] Toribio Garcia MD Primary Care Provider [phone] Encounters Date Type Department Care Team Description 12/23/2024 Telephone [facility] Medical Group Convenient Care at [address] [phone] April Akers NP 12/21/2024 2:27 PM CDT - 12/21/2024 11:59 PM CDT Hospital Encounter [address] [address] Acute cystitis with hematuria Discharge Disposition: Discharge to home or self care 12/21/2024 2:15 PM CDT Office Visit [facility] at [address] [phone] April Akers NP Acute cystitis with hematuria (Primary Dx) 12/11/2024 Results Follow-Up [facility] Medical [facility] Convenient Care at [address] [phone] Olga Apple NP Urine culture Urine, clean voided 12/08/2024 3:07 PM CDT - 12/08/2024 11:59 PM CDT Hospital Encounter [address] [address] Acute cystitis with hematuria Discharge Disposition: Discharge to home or self care 12/08/2024 3:00 PM CDT Office Visit [facility]ient Care at [address] [phone] Rosi Leos NP Acute cystitis with hematuria (Primary Dx) 10/28/2024 11:45 AM CDT Office Visit [facility] Oncology [address] [place] [phone] Lottie Donohue MD Invasive ductal carcinoma of breast, female, left (HCC) (Primary Dx) 10/28/2024 11:15 AM CDT Lab [facility] [address] [place] [address] Invasive ductal carcinoma of breast, female, left (HCC) 10/28/2024 9:12 AM CDT - 10/28/2024 11:59 PM CDT Hospital Encounter [facility] Radiology at [facility] [address] [place] [address] Invasive ductal carcinoma of breast, female, left (HCC) Discharge Disposition: Discharge to home or self care 10/12/2024 Telephone [facility] [address] [facility] [place] [place] Floor [address] [place] [address] Tonya Ferraro RMA from Last 3 Months [...] (10/02/2021): Added automatically from request for surgery [id number] Malignant neoplasm of overla pping sites of [...] on file Medical Devices Implanted Type Area Pharmacist Assistant Device Identifier Shelf Expiration Date Model / Serial / Lot [employer] Natrelle Inspira Smooth Gel Xfull Profile Implant 495cc Breast Ssx-495 - [id number] - [id number] Implanted:Qty : 1 on 10/16/2021 by Francesco Fleming MD at [facility] Breast Left: Breast [employer] [id number] 05/10/2023 SSX-495 / [id number] / [employer] Ssx-495 Natrelle Inspira Smooth Gel Xfull Profile Implant 495cc Breast - [id number] - [id number] Implanted:Qty : 1 on 10/16/2021 by Francesco Fleming MD at [facility] Breast Right: Breast [employer] [id number] 11/05/2023 SSX-495 / [id number] / Matrix Tissue 16x6cm Alloderm Select Thk.4-2.4mm Thick - [id number] Implanted:Qty : 1 on 05/12/2021 by Francesco Fleming MD at [facility] Right: Breast [employer] 03/23/2022 [id number] / / [id number] Matrix Tissue 16x6cm Alloderm Select Thk.4-2.4mm Thick - [id number] Implanted:Qty : 1 on 05/12/2021 by Francesco Fleming MD at [facility] Left: Breast [employer] 04/23/2022 [id number] / / [id number] [employer] [id number] Magtrace Liquid Marker 10 Vial Carton - [id number] Implanted:Qty : 1 on 05/12/2021 by Maricruz Howard MD PhD at [facility] Left: Breast [employer] 11/21/2022 [id number] / / [id number] Explanted Type Area Pharmacist Assistant Device Identifier Shelf Expiration Date Model / Serial / Lot [employer] [id number]-14-T Implant Mammary Natrelle Te Smooth 828i-Jh-59-T With Fourte - [id number] - [id number] Implanted:Qty : 1 on 05/12/2021 by Francesco Fleming MD at [facility] Explanted:Qty : 1 on 10/16/2021 by Francesco Fleming MD at [facility] Right: Breast [employer] [id number] 03/26/2025 133S-MX-1 3-T / [id number] / [employer] 839h-Do-70-T Implant Mammary Natrelle Te Smooth 494q-Wh-48-T With Fourte - [id number] - [id number] Implanted:Qty : 1 on 05/12/2021 by Francesco Fleming MD at [facility] Explanted:Qty : 1 on 10/16/2021 by Francesco Fleming MD at [facility] Left: Breast [employer] [id number] 02/27/2025 133S-MX-1 3-T / [id number] / Procedures Procedure Name Priority Date/Time Associated [...] Negative Ketones, ur, POC Negative Negative Specific Pitts, POC 1.005 1.003 - 1.030 Blood, ur, POC Moderate(A) Negative pH, ur, POC 6.0 5.0 - 8.0 Protein, ur, POC 30.(A) Negative Urobilinogen, urine, POC 0.2 0.2 - 1.0 mg/dL Nitrite, ur, POC Negative Negative Leukocytes, ur, POC Large(A) Negative Lot Number [id number] Urine 12/21/2024 2:28 PM CDT us April Akers NP POINT OF CARE TEST ORDERABLES F inal Result * (ABNORMAL) Urine culture Urine, clean voided (12/08/2024 3:07 PM CDT) Report Final Report: Greater than or equal to 100,000 colonies/mL of Escherichia coli (.) Comment:Testing performed by : [facility], [address] [place]., [address] Organism ESCHERICHIA COLI [facility] Urine, clean voided 12/08/2024 3:07 PM CDT 12/09/2024 12:12 AM CDT Narrative KINGSLEY - 12/11/2024 6:12 AM CDT Testing performed by [facility] Microbiology Laboratory ([phone]) Organism Antibiotic Method Susceptibility Escherichia coli Ampicillin [...] MICROBIOLOGY - GENERAL ORD ERABLES Final Result [facility] [address] Department [place] [address] * (ABNORMAL) POCT urinalysis dipstick (12/08/2024 3:06 PM CDT) Color, Urine, POC Yellow Clarity, ur, POC Cloudy(A) Clear Glucose, ur, POC Negative Negative Bilirubin, ur, POC Negative Negative Ketones, ur, POC Negative Negative Specific Pitts, POC 1.010 1.003 - 1.030 Blood, ur, POC Large(A) Negative pH, ur, POC 6.0 5.0 - 8.0 Protein, ur, POC 30.(A) Negative Urobilinogen, urine, POC 0.2 0.2 - 1.0 mg/dL Nitrite, ur, POC Negative Negative Leukocytes, ur, POC Moderate(A) Negative Lot Number [id number] Urine 12/08/2024 3:06 PM CDT Rosi Leos [...] ORDERABLES Final Resul t [facility] ARANDA [facility] Department of Laboratories [place], [place] [id number] * Differential, auto (10/28/2024 11:25 AM CDT) Neutrophil abs 5.46 1.50 - 6.50 K/cumm Comment:Testing performed by : [facility], [address] [facility] [address] Imm gran abs 0.10 0.00 - 0.10 K/cumm [facility] Lymphocyte abs 1.86 0.80 - 3.30 K/cumm [facility] Monocyte abs 0.77 0.20 - 0.80 K/cumm [facility] Eosinophil abs 0.13 0.00 - 0.50 K/cumm [facility] Basophil abs 0.06 0.00 - 0.10 K/cumm [facility] Neutrophil pct 65.1 % [facility] Comment: Interpretive Data Percent cell count reference ranges are not reported, since discordance with absolute values may lead to misinterpretation of CBC data. Current Interpretive Data was last revised on 2017. Imm gran pct 1.2 % [facility] Comment: Interpretive Data Percent cell count reference ranges are not reported, since discordance with absolute values may lead to misinterpretation of CBC data. Current Interpretive Data was last revised on 2017. Lymphocyte pct 22.2 % [facility] Comment: Interpretive Data Percent cell count reference ranges are not reported, since discordance with absolute values may lead to misinterpretation of CBC data. Current Interpretive Data was last revised on 2017. Monocyte pct 9.2 % [facility] Comment: Interpretive Data Percent cell count reference ranges are not reported, since discordance with absolute values may lead to misinterpretation of CBC data. Current Interpretive Data was last revised on 2017. Eosinophil pct 1.6 % [facility] Comment: Interpretive Data Percent cell count reference ranges are not reported, since discordance with absolute values may lead to misinterpretation of CBC data. Current Interpretive Data was last revised on 2017. Basophil pct 0.7 % [facility] Comment: Interpretive Data Percent cell count reference ranges are not reported, since discordance with absolute values may lead to misinterpretation of CBC data. Current Interpretive Data was last revised on 2017. Blood 10/28/2024 11:2 5 AM CDT 10/28/2024 11:25 AM CDT Lottie Donohue MD LAB BLOOD ORDERABLES Final Resul t [facility] [place] [address] * (ABNORMAL) CBC with auto differential (10/28/2024 11:25 AM CDT) [facility] Signature WBC 8.38 3.80 - 9.90 K/cumm Comment:Testing performed by : [address] [address] Hgb 13.0 11.9 - 15.5 g/dL [facility] Comment:Testing performed by : [place] [id number] Hct 37.8 35.6 - 45.5 % [facility] Comment:Testing performed by : [address] [address] Plt 230 150 - 400 K/cumm [facility] Comment:Testing performed by : [address] [address] MPV 8.5(L) 9.1 - 12.3 fL [facility] RBC 4.20 3.90 - 5.20 M/cumm [facility] MCV 90.0 81.3 - 96.4 fL [facility] MCH 31.0 27.1 - 33.3 pg [facility] MCHC 34.4 32.3 - 35.7 g/dL [facility] RDW CV 12.3 11.1 - 14.9 % [facility] RDW SD 39.9 35.7 - 48.1 fL [facility] NRBC abs 0.00 0.00 - 0.01 K/cumm [facility] ANC Prelim 5.46 1.50 - 6.50 K/cumm [facility] Comment: Interpretive Data The rapid ANC is a preliminary automated count and may vary from the final ANC (Neut Abs) reported in the WBC differential that follows. Current interpretive data was last revised 2024. Blood 10/28/2024 11:2 5 AM CDT 10/28/2024 11:25 AM CDT Lottie Donohue MD LAB BLOOD ORDERABLES Final Resul t [facility] Department [place] [address] * Vitamin D 25 hydroxy (10/28/2024 11:25 AM CDT) Pathologist [facility] Vitamin D 25-OH 44 30 - 80 ng/mL Blood 10/28/2024 11:2 5 AM CDT 10/28/2024 1:06 PM CDT Lottie Donohue MD LAB BLOOD ORDERABLES Final Resul t Performing Organization Address [facility] de Phone Number [facility] Department [place] [address] * Comprehensive metabolic panel (10/28/2024 11:25 AM CDT) [facility] Sodium 139 135 - 145 mmol/L Comment:Testing performed by : [facility], [address] [place] [address] Potassium, pl 4.0 3.3 - 4.9 mmol/L [facility] Chloride 105 97 - 110 mmol/L [facility] CO2 28 22 - 32 mmol/L [facility] Anion gap 6 2 - 15 mmol/L [facility] BUN 9 6 - 25 mg/dL [facility] Creatinine 0.74 0.60 - 1.10 mg/dL [facility] Glucose 81 70 - 199 mg/dL [facility] Comment: Interpretive Data Fasting glucose >/= 126 [...] Calcium 9.7 8.5 - 10.3 mg/dL [facility] Bilirubin, total 0.3 0.1 - 1.2 mg/dL [facility] Protein, pl 7.3 6.5 - 8.5 g/dL [facility] Albumin 4.2 3.5 - 5.0 g/dL [facility] Alk phos 68 40 - 130 Units/L [facility] ALT 45 7 - 45 Units/L [facility] AST 34 10 - 45 Units/L [facility] Blood 10/28/2024 11:2 5 AM CDT 10/28/2024 11:25 AM CDT us Lottie Donohue MD LAB BLOOD ORDERABLES Final Resul t [facility] Department [place] [address] * CT Chest WO Contrast (10/28/2024 9:21 [...] Final Result from Last 3 Months Insurance [facility] CHOICE PLUS [facility] CHOICE PLUS [facility] CHOICE PLUS Advance Directives For more information, please contact: [phone] * Full Code (Latest Code Status on File) Date Activated Date Inactivated Comments 05/12/2021 9:11 PM 05/13/2021 6:08 PM Care Teams Snow Ranger Relationship Specialty Start Date End Date Toribio Garcia MD [address] [place] [address] PCP - General 03/10/21 Toribio Garcia MD [address] [place] [address] Referring Physician Obstetrics and Gynecology 03/01/21
--- OUTSIDE RECORDS SUMMARY | 2024-12-23 20:29 | XMS_ITS | Clinical Summary ---
Author Organization [facility] Address [address] [place] [address] Care Team Providers Care Assistant Counsel Name Role Phone Unavailable Primary Care Provider Unavailabl e Source Comments [facility],non-owned Affiliates and Associated Physician Practices is amultiple site organization consisting of ambulatory clinics and hospital sitesin [place], [place], [place] and [place]. This disclosure is being madepursuant to the Care Everywhere program and may not contain all information available regarding this patient. Last updated 18.[facility] Allergies No known active allergies Medications * [...]
--- OUTSIDE RECORDS SUMMARY | 2024-12-23 20:29 | XMS_ITS | Encounter Summary ---
Author Organization [facility] Healthcare Address [address] [place] [address] Care Team Providers Care Collar Setter Name Role Phone Toribio Garcia MD Unavailable [phone] Toribio Garcia MD Primary Care Provider [phone] Encounter Details Date Type Department Care Team (Late st Contact Info) Description 12/23/2024 Telephone [facility] Medical Group Convenient Care at [address] [phone] April Akers NP [address] [place] [address] [address] [place] [address] Social History Tobacco Use Types [...] on filedocumented in this encounter Care Teams Collar Setter Relationship Specialty Start Date End Date Toribio Garcia MD [address] [place] [address] PCP - General 03/10/21 Toribio Garcia MD [address] [place] [address] Referring Physician Obstetrics and Gynecology 03/01/21 documented as of this encounter
--- OUTSIDE RECORDS SUMMARY | 2024-12-23 20:29 | XMS_ITS | Encounter Summary ---
Author Organization [facility] Healthcare Address [address] [place] [address] Care Team Providers Care Motor Room Controller Name Role Phone Toribio Garcia MD Unavailable [phone] Toribio Garcia MD Primary Care Provider [phone] Encounter Details Date Type Department Care Team (Late st Contact Info) Description 12/11/2024 Results Follow-Up [facility] Medical [facility] Convenient Care at [address] [phone] Olga Apple NP [address] [place] [address] [address] [place] [address] Urine culture Urine, clean voided [...] on filedocumented in this encounter Care Teams Motor Room Controller Relationship Specialty Start Date End Date Toribio Garcia MD [address] [place] [address] PCP - General 03/10/21 Toribio Garcia MD [address] [place], [place] [address] Referring Physician Obstetrics and Gynecology 03/01/21 documented as of this encounter
[2024-12-23 20:42] LABS: Add Urine Microscopic? YES; Appearance Urine Cloudy (Clear); Glucose Urine UA Negative (Negative); Leukocyte Esterase Ur Trace LEU/UL (Negative); Nitrate Urine Negative (Negative); Non Pathogenic Casts 0-2; Specific Grav Ur 1.013 (1.001-1.035)
[2024-12-23] MEDS: CEPHALEXIN 500 MG CAPSULE PO (20:52)
[2024-12-23] MEDS: ONDANSETRON HCL ODT 4 MG TABLET PO (20:52)
[2024-12-23] MEDS: KETOROLAC 30 MG/ML VIAL (*BKC) 15 MG IM (20:52)
[2024-12-23 20:58] VITALS: BP 121/77; PULSE 77; RESP 18; O2SAT 99
== END 2024-12-23 20:59 | disposition home or self-care (01) ==
PROVIDERS: Emergency Provider Student in an Organized Health Care Education/Training Program
DX: N12 Tubulo-interstitial nephritis, not specified as acute or chronic (principal); Z85.3 Personal history of malignant neoplasm of breast; Z90.13 Acquired absence of bilateral breasts and nipples
CPT/HCPCS: 81001; 81025; 87086; 96372; 99283; A9270; J1885